=== PATIENT | female | born 1935 | race Caucasian/White ===

== ENCOUNTER 2019-11-22 14:54 | Outpatient (CLI) | payer MEDICARE, MEDICAID, SELFPAY ==
--- NOTE | 2019-11-23 14:01 | ONC FU_ITS ---
Dr. Estrella Patient Follow-Up Note Patient: Sendy Foley Unit #: [id number]: 1935 Dicatated By: Denny Estrella M.D.Date of Visit:Nov 22, 2019 Onc Med Follow-up/Prog Note Chief Complaint: Lung cancer. 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 By clinical evaluation disease appeared to be stage IB (T2a, N0, M0) at initial diagnosis, but with subsequent progression. In addition, by CT there also was a suspected small 2nd primary lesion involving the lingula. She had presented with persistent cough. Her initial chest x-ray, back in November 2016, showed indistinct increased parenchymal opacities in the right hilar region, suggesting possible mass. Further evaluation with chest CT on 12/09/2016 reported probable fibrosis involving the superior segment of the right lower lobe and additional probable fibrosis in the medial aspect of the right middle lobe. A 3-month follow-up study was recommended. She then had a repeat chest CT on 07/12/2017. It showed enlarging spiculated right hilar mass measuring 3.6 x 2.6 x 3.0 cm, suspicious for neoplasm. Also noted was a right hilar lymph node measuring 1.4 cm versus extension of tumor into the right hilum. There was evidence of underlying emphysema and prior granulomatous disease. There was probable scarring or fibrosis along the medial right upper lobe. PET/CT on 08/07/2017 showed 1.8 cm spiculated malignancy in the right infrahilar region with SUV 10.5, consistent with primary bronchogenic malignancy. There were no other areas of abnormal uptake. A 7 mm opacity in the superior lingula was too small to characterize by PET. She underwent bronchoscopy by Dr. Self on 09/06/2017 and again on 11/03/2017. On both occasions there was evidence of effacement to the orifice of the posterior segment of the right lower lobe. Biopsies, though, were nondiagnostic. Her further evaluation included repeat chest CT on 11/24/2017 which again showed spiculated mass in the right hilar region extending into the parenchyma of the superior segment right lower lobe and possibly into the right middle lobe posteriorly. It measured 3 x 3.2 x 2.3 cm. Also noted was an ill-defined spiculated nodule in the superior lingular segment, more apparent compared to the prior exam, and estimated at 9.5 mm. On 01/25/2018 she underwent repeat bronchoscopy with EBU S and fine-needle aspiration biopsy of the right hilar mass by Dr. Vida Solorio in [place]. 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 It was noted that the specimen was marginal for any ancillary studies. She began radiation to the right hilar lesion on 02/14/2018. It was administered concurrently with weekly carboplatin/Taxol chemotherapy. As of 03/14/2018 she completed her 5th weekly infusion of carboplatin/Taxol. Her week 6 treatment was delayed due to neutropenia. She also had fatigue, low-grade fever, and diarrhea. In addition, she was having some esophagitis symptoms with the radiation. She was given IV hydration and she also was given empiric antibiotic coverage with Levaquin. Her symptoms improved and she then completed her final chemotherapy treatment on 03/28/2018. She completed radiation on 04/01/2018 to a total dose of 6000 cGy. She then underwent SBRT to the lingular lesion, completed on 04/11/2018 to a total dose of [address] on 05/10/2018 showed interval enlargement of the right hilar/superior segment lower lobe mass measuring 7.5 x 4.5 x 2.6 cm. A 67 mm nodular focus in the left upper lobe appeared unchanged. New right upper lobe and increased right upper lobe medial focal opacity appeared nonspecific. Given those findings, she then began a trial of immunotherapy with atezolizumab, cycle 1 day 1 on 05/17/2018. Her other medical illnesses include COPD, hyperlipidemia, hypothyroidism, GERD, and vitamin D deficiency. She has a history of smoking for 50 years, in the range of 1-2 packs of cigarettes daily. She quit smoking in 1999. INTERIM HISTORY: She continued immunotherapy with atezolizumab at 3-week intervals. As of 07/19/2018 she received her 4th cycle of treatment. Thus far she has tolerated it well. Restaging CT of the chest on 08/05/2018 showed some decrease in the size of the neoplastic mass lesion in the superior segment right lower lobe compared to the study from April. There was possible extension of neoplastic process in the right middle lobe. There was evidence of postradiation changes of the lingula. Overall, there was no evidence of significant disease progression. She continued with cycle 6 of atezolizumab on 08/30/2018. As of her follow-up visit on 09/20/2018 her treatment was put on hold due to side effects, primarily muscle pain and cramping. Restaging CT of the chest, abdomen, and pelvis on 09/29/2018 showed soft tissue lesion extending posteriorly from the right hilum which appear most consistent with posttreatment scar. It measured 4.8 x 1.6 x 2.6 cm. Some component of residual and/or recurrent tumor was not excluded. Also noted was 5-10% compression fracture involving the T9 vertebral body, indeterminate age. The abdomen/pelvis showed severe colonic diverticulosis, no evidence of metastatic involvement. Restaging PET/CT on 12/31/2018 showed improvement in the right upper lobe mass, measuring 2.8 cm with SUV down to 4.3 compared to 10.5 on the prior study from July 2017. It was felt that the pattern of uptake was more suggestive of post radiation therapy inflammation than true residual disease, though a small region of recurrence was not excluded. A discrete lingular pulmonary nodule noted on the prior study was no longer evident. A repeat chest CT on 04/03/2019 showed stable appearance of right perihilar soft tissue attenuation suggestive of post-therapeutic changes. Lingular and bilateral lower lobe linear subsegmental atelectasis and/or scarring also appeared stable. There was no evidence of disease progression. A T9 superior endplate compression fracture also appeared unchanged. Restaging chest CT on 09/15/2019 showed persistent soft tissue density in the right hilar region which appeared more prominent compared to prior exams, estimated at 2 x 1.6 cm. A band of soft tissue density extending posterior from the right hilum appeared stable, compatible with radiation fibrosis. Additional scarring in the anterior segment left upper lobe and superior segment left lower lobe also appeared stable. There also was no change in the anterior superior compression fracture at T9. There was no evidence for lytic or blastic bony destructive lesions. She continued on observation/expectant management. Restaging PET/CT on 11/11/2019 showed unchanged size of right upper lobe lung lesion and it appeared to have just mild inflammatory activity. There was new uptake in the superior right hilum with SUV 5.0, possibly inflammatory but recurrence was not excluded. There was FDG avid soft tissue lateral to the right breast implant measuring 1.8 x 1.4 cm, SUV 6.0. This was also felt to be possibly inflammatory, but further characterization with ultrasound was recommended. There were no other areas of abnormal uptake reported. She is seen for a follow-up visit. She has not had good energy, and she complains that she is so sleepy all the time. She is doing light work, though. She has pretty good appetite. Her weight is up a couple of pounds. She recently had fever associated with a cold. She has not had night sweating. She has had a lot of sinus drainage, and she had productive cough with the cold, but that has improved. She does not complain of shortness of breath or chest pain. She has no GI/ complaints other than occasional heartburn, which she manages with Pepcid. She has a bone spur in her left heel, but she manages that adequately with ibuprofen. She occasionally has back pain. She has no focal neurologic symptoms. Medications: Acetaminophen 2 Tablet (of 325 mg) Oral PRN, Chloraseptic Liquid Mouth/throat PRN, Hydrocodone-Acetaminophen 1 (5-325 mg) Tablet Oral q 4 hours PRN, Levothyroxine Sodium 1 (100 mcg) Tablet Oral q 5 days on -, LORazepam 0.5 Tablet (of 1 mg) Oral q 6 hours PRN, Montelukast Sodium 1 (10 mg) Tablet Oral daily, Mucinex Cough Childrens 1 tsp Liquid Oral PRN, Mucinex Maximum Strength 1 Tablet (of 1200 mg) Tablet SR 12 HR Oral PRN, Mupirocin 1 (2 %) Ointment Topical PRN, Probiotic 2 Capsule Oral daily, Turmeric 1 Tablet (of 500 mg) Oral daily, Vitamin B Complex Liquid Oral daily, Vitamin C 1 Packet Powder Oral daily, Vitamin D3 (5000 Units) Capsule Oral Take as Directed, Vitamin E 1 Capsule (of 400 Units) Oral daily, Zinc 1 Capsule (of 25 mg) Oral daily Allergies: Cyclobenzaprine HCl, Gabapentin, Levaquin, and Statins. Review of Systems: Constitutional - She has not had good energy. She complains that she is so sleepy all the time. She is doing light work, though. She has pretty good appetite. Her weight is up a couple of pounds. She recently had fever associated with a cold. She has not had night sweating. ECOG score is 1, ENMT - She has a lot of sinus drainage. Her mouth sometimes bean. No sore throat or difficulty swallowing, Hematologic/Lymphatic - No abnormal bruising or bleeding, Respiratory - No shortness of breath. She had productive cough, but it is getting better. No pleuritic pain or hemoptysis, Cardiovascular - No angina pain. No palpitations, Gastrointestinal - No nausea or vomiting. She has heartburn occasionally. She manages it with Pepcid. No diarrhea or constipation. No blood in the stool or black stools, Genitourinary (F) - No dysuria or hematuria. No urinary frequency. No urgency or incontinence, Musculoskeletal - She has a bone spur in her left heel. She manages it adequately with ibuprofen. She occasionally has back pain, Integumentary - No skin complications, Neurologic - No headache. She has had some dizziness from an inner ear problem. No numbness/paresthesias or other focal neurologic symptoms, Psychiatric - No anxiety or depression. No insomnia. Vital Signs: Performed on Nov 22, 2019 15:19 Height - 63.00 in Weight - 135.2 lbs (HIGH) BSA - 1.64 sq.m BMI - 23.95 Temperature - 97.5 F (LOW) Pulse - 81 /min Respiration - 18 /min BP - 132/80 mm(hg) O2 Sat - 95 % (LOW) Pain - 0 Physical Examination: Constitutional - She looks pretty good generally, Eyes - Sclerae nonicteric. Conjunctivae clear, ENMT - No lesions noted in the oral cavity, Hematologic/Lymphatic - No cervical or clavicular adenopathy, Respiratory - Lungs sound clear with diminished air movement bilaterally, Cardiovascular - Heart rhythm is regular. There is no murmur, gallop, or rub noted, Breasts - There are multiple nodules overlying the breast implants bilaterally. I am not able to palpate any mass in the lateral aspect of the right breast. There is no axillary adenopathy noted, Abdomen - Soft. Liver and spleen are not enlarged. There is no abdominal mass or ascites noted and there is no inguinal adenopathy, Extremities - No edema, Neurologic - No focal neurologic deficits noted. Impression: 1. 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 By clinical evaluation, her disease appears to be stage IB (T2a, N0, M0), but the location does make the tumor inoperable. 2. There is an additional small but enlarging pulmonary nodule in the superior lingula. This is suspicious for a second primary malignancy. Her other medical illnesses include: 3. COPD. 4. Hypothyroidism. 5. Hyperlipidemia with statin intolerance. 6. GERD. 7. Vitamin D deficiency. She began treatment with radiation concurrently with weekly carboplatin/Taxol chemotherapy on 02/14/2018. As of 03/14/2018 she completed 5 weekly chemotherapy infusions. As of 03/21/2018 her white count had dropped to 1600 with ANC 1400, and her chemotherapy was put on hold. She had increased fatigue and low-grade fever. Her symptoms improved after IV hydration and empiric antibiotic coverage with Levaquin. She then completed her final chemotherapy treatment on 03/28/2018. She completed radiation on 04/01/2018 to a total dose of 6000 cGy. She then underwent SBRT to the lingular lesion, completed on 04/11/2018 to a total dose of 5400 cGy. Her restaging chest CT on 05/10/2018 showed evidence of progression of the right hilar and superior segment lower lobe neoplasm. Given those findings, she began a trial of immunotherapy with atezolizumab on 05/17/2018. She has now completed 4 cycles of treatment. She has tolerated it well. Her restaging chest CT on 08/05/2018 showed some decrease in the right lower lobe mass with no evidence of significant disease progression. She continued treatment with atezolizumab. She completed cycle 6 on 08/30/2018. As of her follow-up visit on 09/20/2018, her treatment was put on hold due to side effects, mainly muscle pain and cramping. She has since then been on steroid therapy, and her symptoms have resolved. Her restaging CT scans on 09/29/2018 showed residual mass in the area of the right hilum, but no obvious disease progression. Restaging PET/CT on 12/31/2018 showed significant improvement compared to the prior study from July 2017. There was residual right upper lobe mass measuring 2.8 cm with SUV 4.3 compared to 10.5 on the prior study. It was felt that the pattern of uptake was more suggestive of postradiation therapy inflammation than true residual disease, though recurrence was not excluded. At that point she continued on observation/expectant management. Her repeat chest CT in March 2019 appeared stable with no evidence of disease progression. 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 Those symptoms had gradually improved somewhat, though not completely resolved. She appears to have some decline in her activity tolerance. On her restaging chest CT there was a suspicion of slight progression of the tumor in the area of the right hilum. There was no other evidence for disease progression. Her restaging PET/CT on 11/11/2019 did show some uptake in the superior right hilum, but with the SUV suggestive of inflammatory activity. Recurrence, though, was not excluded. There was new uptake in soft tissue lateral to the right breast implant, also possibly inflammatory, but further evaluation with ultrasound was recommended. She appears stable clinically. Plan: She will remain on observation/expectant management for the lung cancer. She will be scheduled for a follow-up visit with repeat chest CT in 3 months. In the meantime, she also will be scheduled for an ultrasound of the right breast, and she will have further evaluation as indicated. Signed By: Dneny Estrella M.D. <<Signature on File>>
== END 2019-11-22 14:55 | disposition home or self-care (01) ==
LOC: ONCMED 14:54
PROVIDERS: Family Provider Nurse Practitioner; PCP Nurse Practitioner; Visit Provider Internal Medicine Medical Oncology
DX: C34.31 Malignant neoplasm of lower lobe, right bronchus or lung (principal); R92.8 Other abnormal and inconclusive findings on diagnostic imaging of breast; J43.9 Emphysema, unspecified; E78.5 Hyperlipidemia, unspecified; E03.9 Hypothyroidism, unspecified; K21.9 Gastro-esophageal reflux disease without esophagitis; E55.9 Vitamin D deficiency, unspecified; Z79.891 Long term (current) use of opiate analgesic; Z79.899 Other long term (current) drug therapy; Z92.21 Personal history of antineoplastic chemotherapy; Z92.3 Personal history of irradiation; Z92.25 Personal history of immunosuppression therapy; Z87.891 Personal history of nicotine dependence
CPT/HCPCS: 99214

== ENCOUNTER 2019-11-28 10:15 | Outpatient (CLI) | payer MEDICARE, MEDICAID, SELFPAY ==
--- NOTE | 2019-11-28 11:00 | US_ITS ---
WS: [id number] ULTRASOUND RIGHT BREAST HISTORY: RIGHT BREAST ABNORMALITY ON PET/CT COMPARISON: Head CT 11/11/[address] 09/15/2019 TECHNIQUE: 2-D and Doppler. Ultrasound is directed to the lateral aspect of the RIGHT breast implant. Along the RIGHT lateral asp ect of the implant is a lobulated area of dense shadowing measuring 2.9 x 1.5 cm. This is inseparable from the implant. No increased vascularity. Patient has bilateral breast implants. US/US breast RT limited* [id number] IMPRESSION: BI-RADS: 4A-Suspicious: Low FOLLOW-UP: Surgical Biopsy Recommended 1. PET/CT positive mass corresponds to a lobulated area of shadowing adjacent to the breast implant. Due to the appearance by ultrasound suspect this may be a siliconoma which is related to rupture of the implant. Siliconoma can be fals e positive on PET/CT imaging. 2. These are difficult to biopsy with ultrasound guidance due to their locatio n of the implant and a small sampling. Surgical removal is typically necessary to exclude benign etiologies versus metastatic site.
== END 2019-11-28 10:16 | disposition home or self-care (01) ==
LOC: RAD 10:19
PROVIDERS: Family Provider Nurse Practitioner; PCP Nurse Practitioner; Visit Provider Internal Medicine Medical Oncology
DX: R92.8 Other abnormal and inconclusive findings on diagnostic imaging of breast (principal)
CPT/HCPCS: 76642

== ENCOUNTER 2020-02-23 09:03 | Outpatient (CLI) | payer MEDICARE, MEDICAID, SELFPAY ==
--- NOTE | 2020-02-23 09:30 | CT_ITS ---
WS: [id number] CT CHEST WITH INTRAVENOUS CONTRAST HISTORY: LUNG CA TECHNIQUE: Contiguous 5 mm axial imaging performed on the thorax. Coronal and sagittal reformats are submitted. All CT scans at [facility] use at least one of these dose optimization techniq ues: automated exposure control; mA and/or kV adjustment per patient size (includes targeted exams wh ere dose is matched to clinical indication); or iterative reconstruction. CONTRAST: Omnipaque 300; 95 mL IV. DLP: 345.42 mGy.cm COMPARISON: 09/15/2019 and 04/03/2019, PET/CT 11/11/2019 Lungs and central airway: Soft tissue mass centered at the RIGHT hilum encasing the pulmonary artery and the central bronchial structures is again identified without significant increase in size since t he prior study. There has been no improvement. Largest AP diameter of the posterior hilar mass is 2.3 cm which compares to 2.1 cm on the prior study. Subsolid stable nodule in the medial RIGHT upper lob e is stable. Benign granuloma RIGHT lower lobe. No pneumonia. Pleura: Normal. No pleural effusion. Heart and pericardium: Normal size heart. No pericardial effusion. Mediastinum and tarun: Small subcentimeter precarinal and AP window lymph nodes. There are no enlargin g lymph nodes as compared to the prior examination or the PET/CT. Vessels: Mild atherosclerosis of aorta. No aneurysm. Pulmonary artery size is normal. Chest wall and lower neck: Bilateral breast implants. These breast implants are partially calcified. There is soft tissue thickening along the posterior RIGHT implant measuring 12 x 16 mm which was posi tive on the PET/CT. This is unchanged in size also. Upper abdomen: Moderate size hiatal hernia. Prior cholecystectomy. No adrenal mass. The visualized li reyes is negative for metastatic disease. Osseous structures: Chronic T9 compression fracture with no interval change. CT/CT chest w con* [id number] IMPRESSION: 1. No significant progression in the neoplasm centered at the RIGHT hilum with encasement of the hilar structures. Stable since 09/15/2019. Continued spiculat ed soft tissue. No progression or improvement. 2. No enlarging mediastinal or hilar lymph nodes. 3. Stable RIGHT upper lobe subsolid opacification. 4. No increase in size of the soft tissue mass adjacent to the posterior RIGHT breast implant. 5. Prior cholecystectomy. 6. Moderate hiatal hernia. 7. Unchanged T9 compression fracture.
[2020-02-23 09:45] LABS: Basophils # 0.1 10^3/uL (0.0-0.1); Eosinophils # 0.1 10^3/uL (0.0-0.8); Eosinophils % 1.9 %; Hematocrit 41.2 % (37.0-47.0); Hemoglobin 13.3 g/dL (11.5-15.3); Lymphocytes # 1.1 10^3/uL (0.8-4.8); Lymphocytes % 21.6 %; Mean Corpuscular HGB Conc 32.3 g/dL (30.0-36.0); Mean Corpuscular Hemoglobin 30.8 pg (28.0-34.0); Mean Corpuscular Volume 95.4 fL (81-99); Mean Platelet Volume 9.4 fL (7.4-10.4); Monocytes # 0.5 10^3/uL (0.2-0.9); Monocytes % 9.2 %; Neutrophils # 3.5 10^3/uL (1.8-7.7); Neutrophils % 65.9 %; Nucleated Red Blood Cells % 0 %; Platelet Count 237 10^3/cmm (130-400); Red Blood Count 4.32 10^6/uL (4.1-5.3); Red Cell Distribution Width 12.9 % (12.1-15.1); White Blood Count 5.2 10^3/uL (4.0-10.0)
[2020-02-23] MEDS: iohexol 300 mg/mL 100 mL Btl IV (10:41)
[2020-02-23 10:44] LABS: 25 Hydroxy Vitamin D 55 ng/mL (30-100); Alanine Aminotransferase 21 U/L (0-33); Albumin Level 4.7 g/dL (3.5-5.2); Alkaline Phosphatase 61 IU/L (35-105); Anion Gap 17.2 (5-19); Aspartate Amino Transferase 23 U/L (0-32); Blood Urea Nitrogen 13 mg/dL (8-23); Calcium 10.5 mg/dL (8.5-10.5); Carbon Dioxide 26 mmol/L (22-29); Chloride 102 mmol/L (98-107); Globulin 3.3 g/dL (1.3-4.6); Glucose 106 mg/dL (65-115); Osmolality Calculated 289 mOsm/kg (285-295); Potassium 4.2 mmol/L (3.5-5.1); Sodium 141 mmol/L (136-145); Thyroid Stimulating Hormone 1.84 uIU/mL (0.27-4.20); Total Bilirubin 0.3 mg/dL (0.15-1.2)
== END 2020-02-23 09:04 | disposition home or self-care (01) ==
LOC: RAD 09:09
PROVIDERS: PCP Nurse Practitioner; Visit Provider Internal Medicine Medical Oncology
DX: K44.9 Diaphragmatic hernia without obstruction or gangrene (principal); C34.31 Malignant neoplasm of lower lobe, right bronchus or lung; J44.9 Chronic obstructive pulmonary disease, unspecified; M48.54XA Collapsed vertebra, not elsewhere classified, thoracic region, initial encounter for fracture; E55.9 Vitamin D deficiency, unspecified; E03.9 Hypothyroidism, unspecified
CPT/HCPCS: 36415; 71260; 80053; 82306; 84443; 85025

== ENCOUNTER 2020-02-28 12:48 | Outpatient (CLI) | payer MEDICARE, MEDICAID, SELFPAY ==
--- NOTE | 2020-03-03 10:04 | ONC FU_ITS ---
Dr. Estrella Patient Follow-Up Note Patient: Sendy Foley Unit #: [id number]: 1935 Dicatated By: Denny Estrella M.D.Date of Visit:February 28, 2020 Onc Med Follow-up/Prog Note Chief Complaint: Lung cancer. 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 By clinical evaluation disease appeared to be stage IB (T2a, N0, M0) at initial diagnosis, but with subsequent progression. In addition, by CT there also was a suspected small 2nd primary lesion involving the lingula. She had presented with persistent cough. Her initial chest x-ray, back in November 2016, showed indistinct increased parenchymal opacities in the right hilar region, suggesting possible mass. Further evaluation with chest CT on 12/09/2016 reported probable fibrosis involving the superior segment of the right lower lobe and additional probable fibrosis in the medial aspect of the right middle lobe. A 3-month follow-up study was recommended. She then had a repeat chest CT on 07/12/2017. It showed enlarging spiculated right hilar mass measuring 3.6 x 2.6 x 3.0 cm, suspicious for neoplasm. Also noted was a right hilar lymph node measuring 1.4 cm versus extension of tumor into the right hilum. There was evidence of underlying emphysema and prior granulomatous disease. There was probable scarring or fibrosis along the medial right upper lobe. PET/CT on 08/07/2017 showed 1.8 cm spiculated malignancy in the right infrahilar region with SUV 10.5, consistent with primary bronchogenic malignancy. There were no other areas of abnormal uptake. A 7 mm opacity in the superior lingula was too small to characterize by PET. She underwent bronchoscopy by Dr. Self on 09/06/2017 and again on 11/03/2017. On both occasions there was evidence of effacement to the orifice of the posterior segment of the right lower lobe. Biopsies, though, were nondiagnostic. Her further evaluation included repeat chest CT on 11/24/2017 which again showed spiculated mass in the right hilar region extending into the parenchyma of the superior segment right lower lobe and possibly into the right middle lobe posteriorly. It measured 3 x 3.2 x 2.3 cm. Also noted was an ill-defined spiculated nodule in the superior lingular segment, more apparent compared to the prior exam, and estimated at 9.5 mm. On 01/25/2018 she underwent repeat bronchoscopy with EBU S and fine-needle aspiration biopsy of the right hilar mass by Dr. Vida Solorio in [place]. 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 It was noted that the specimen was marginal for any ancillary studies. She began radiation to the right hilar lesion on 02/14/2018. It was administered concurrently with weekly carboplatin/Taxol chemotherapy. As of 03/14/2018 she completed her 5th weekly infusion of carboplatin/Taxol. Her week 6 treatment was delayed due to neutropenia. She also had fatigue, low-grade fever, and diarrhea. In addition, she was having some esophagitis symptoms with the radiation. She was given IV hydration and she also was given empiric antibiotic coverage with Levaquin. Her symptoms improved and she then completed her final chemotherapy treatment on 03/28/2018. She completed radiation on 04/01/2018 to a total dose of 6000 cGy. She then underwent SBRT to the lingular lesion, completed on 04/11/2018 to a total dose of [address] on 05/10/2018 showed interval enlargement of the right hilar/superior segment lower lobe mass measuring 7.5 x 4.5 x 2.6 cm. A 67 mm nodular focus in the left upper lobe appeared unchanged. New right upper lobe and increased right upper lobe medial focal opacity appeared nonspecific. Given those findings, she then began a trial of immunotherapy with atezolizumab, cycle 1 day 1 on 05/17/2018. Her other medical illnesses include COPD, hyperlipidemia, hypothyroidism, GERD, and vitamin D deficiency. She has a history of smoking for 50 years, in the range of 1-2 packs of cigarettes daily. She quit smoking in 1999. INTERIM HISTORY: She continued immunotherapy with atezolizumab at 3-week intervals. As of 07/19/2018 she received her 4th cycle of treatment. Thus far she has tolerated it well. Restaging CT of the chest on 08/05/2018 showed some decrease in the size of the neoplastic mass lesion in the superior segment right lower lobe compared to the study from April. There was possible extension of neoplastic process in the right middle lobe. There was evidence of postradiation changes of the lingula. Overall, there was no evidence of significant disease progression. She continued with cycle 6 of atezolizumab on 08/30/2018. As of her follow-up visit on 09/20/2018 her treatment was put on hold due to side effects, primarily muscle pain and cramping. Restaging CT of the chest, abdomen, and pelvis on 09/29/2018 showed soft tissue lesion extending posteriorly from the right hilum which appear most consistent with posttreatment scar. It measured 4.8 x 1.6 x 2.6 cm. Some component of residual and/or recurrent tumor was not excluded. Also noted was 5-10% compression fracture involving the T9 vertebral body, indeterminate age. The abdomen/pelvis showed severe colonic diverticulosis, no evidence of metastatic involvement. Restaging PET/CT on 12/31/2018 showed improvement in the right upper lobe mass, measuring 2.8 cm with SUV down to 4.3 compared to 10.5 on the prior study from July 2017. It was felt that the pattern of uptake was more suggestive of post radiation therapy inflammation than true residual disease, though a small region of recurrence was not excluded. A discrete lingular pulmonary nodule noted on the prior study was no longer evident. A repeat chest CT on 04/03/2019 showed stable appearance of right perihilar soft tissue attenuation suggestive of post-therapeutic changes. Lingular and bilateral lower lobe linear subsegmental atelectasis and/or scarring also appeared stable. There was no evidence of disease progression. A T9 superior endplate compression fracture also appeared unchanged. Restaging chest CT on 09/15/2019 showed persistent soft tissue density in the right hilar region which appeared more prominent compared to prior exams, estimated at 2 x 1.6 cm. A band of soft tissue density extending posterior from the right hilum appeared stable, compatible with radiation fibrosis. Additional scarring in the anterior segment left upper lobe and superior segment left lower lobe also appeared stable. There also was no change in the anterior superior compression fracture at T9. There was no evidence for lytic or blastic bony destructive lesions. Restaging PET/CT on 11/11/2019 showed unchanged size of right upper lobe lung lesion and it appeared to have just mild inflammatory activity. There was new uptake in the superior right hilum with SUV 5.0, possibly inflammatory but recurrence was not excluded. There was FDG avid soft tissue lateral to the right breast implant measuring 1.8 x 1.4 cm, SUV 6.0. This was also felt to be possibly inflammatory, but further characterization with ultrasound was recommended. There were no other areas of abnormal uptake reported. She continued on observation/expectant management. Repeat chest CT on 02/23/2020 showed soft tissue mass centered at the right hilum and encasing the pulmonary artery and the central bronchial structures. The largest AP diameter was 2.3 cm. It was not significantly changed compared to prior studies. A sub-solid nodule in the medial right upper lobe also appeared stable. The soft tissue mass adjacent to the posterior right breast implant also appeared stable. Overall there was no evidence of disease progression. She is seen for a follow-up visit. She had recently developed a bad cough and increased shortness of breath in association with sinus drainage. She was not having fever. She was started on prednisone, and since then she has been feeling better. She says her energy had been terrible, but both her energy and appetite have improved on the prednisone. Her weight is stable. Her ECOG score is 1. She has no fever or night sweats. She says her cough is getting better. She is sometimes short of breath. She uses her inhaler as needed. She has no GI/ complaints other than occasional heartburn. She currently has no significant joint or bone pain. She was having headache, but that is gone now. She has no focal neurologic symptoms. Medications: Acetaminophen 2 Tablet (of 325 mg) Oral PRN, Chloraseptic Liquid Mouth/throat PRN, Hydrocodone-Acetaminophen 1 (5-325 mg) Tablet Oral q 4 hours PRN, Levothyroxine Sodium 1 (100 mcg) Tablet Oral q 5 days on -, LORazepam 0.5 Tablet (of 1 mg) Oral q 6 hours PRN, Montelukast Sodium 1 (10 mg) Tablet Oral daily, Mucinex Cough Childrens 1 tsp Liquid Oral PRN, Mucinex Maximum Strength 1 Tablet (of 1200 mg) Tablet SR 12 HR Oral PRN, Mupirocin 1 (2 %) Ointment Topical PRN, Probiotic 2 Capsule Oral daily, Turmeric 1 Tablet (of 500 mg) Oral daily, Vitamin B Complex Liquid Oral daily, Vitamin C 1 Packet Powder Oral daily, Vitamin D3 (5000 Units) Capsule Oral Take as Directed, Vitamin E 1 Capsule (of 400 Units) Oral daily, Zinc 1 Capsule (of 25 mg) Oral daily Allergies: Cyclobenzaprine HCl, Gabapentin, Levaquin, and Statins. Review of Systems: Constitutional - Her energy has been terrible, but it did improve somewhat after she started prednisone. She is able to do light work. Appetite also has improved. Her weight is stable. She has no fever or night sweats. ECOG score is 1, Eyes - She underwent cataract excisions earlier this year, ENMT - She has sinus drainage. No mouth sores. She has had sore throat. No difficulty swallowing, Hematologic/Lymphatic - No abnormal bruising or bleeding, Respiratory - She sometimes has shortness of breath. Her cough is getting better. No pleuritic pain or hemoptysis, Cardiovascular - No angina pain. No palpitations, Gastrointestinal - No nausea or vomiting. She occasionally has heartburn. No diarrhea or constipation. No blood in the stool or black stools, Genitourinary (F) - No dysuria or hematuria. No urinary frequency. No urgency or incontinence, Musculoskeletal - No significant joint or bone pain, Integumentary - No skin complications, Neurologic - She was having headache, but it is gone now. No dizziness. No numbness/paresthesias or other focal neurologic symptoms, Psychiatric - No anxiety or depression. No insomnia. Vital Signs: Performed on February 28, 2020 13:08 Height - 63.00 in Weight - 134.2 lbs (LOW) BSA - 1.63 sq.m BMI - 23.77 Temperature - 97.2 F (LOW) Pulse - 82 /min Respiration - 18 /min BP - 129/84 mm(hg) O2 Sat - 98 % Pain - 0 Physical Examination: Constitutional - She looks pretty good generally, Eyes - Sclerae nonicteric. Conjunctivae clear, ENMT - No lesions noted in the oral cavity, Hematologic/Lymphatic - No cervical or clavicular adenopathy, Respiratory - Lungs sound clear with diminished air movement bilaterally, worse on the right, Cardiovascular - Heart rhythm is regular. There is no murmur, gallop, or rub noted, Abdomen - Soft. Liver and spleen are not enlarged. There is no abdominal mass or ascites noted and there is no inguinal adenopathy, Extremities - No edema, Neurologic - No focal neurologic deficits noted. Lab/Imaging: Test performed on February 23, 2020 09:55 Sodium 141 mmol/L TSH 1.84 uIU/mL Vitamin D (25-Hydroxy), Total 55 ng/mL Potassium 4.2 mmol/L Chloride 102 mmol/L CO2 26 mmol/L Anion Gap 17.2 BUN 13 mg/dL Creatinine 0.9 mg/dL Cr Clearance (Est) 45.8500 mL/min Glucose 106 mg/dL Calcium 10.5 mg/dL Protein, Total 8.0 g/dL Albumin 4.7 g/dL Globulin 3.3 g/dL Bilirubin, Total 0.3 mg/dL ALT (SGPT) 21 U/L AST (SGOT) 23 U/L Alkaline Phosphatase 61 IU/L Test performed on February 23, 2020 09:35 WBC 5.2 10 3/uL RBC 4.32 10 6/uL HGB 13.3 g/dL HCT 41.2 % MCV 95.4 fL MCH 30.8 pg MCHC 32.3 g/dL RDW 12.9 % Platelet Count 237 10 3/cmm MPV 9.4 fL Neutrophils 3.5 10 3/uL Lymphocytes 1.1 10 3/uL Monocytes 0.5 10 3/uL Eosinophils 0.1 10 3/uL Basophils 0.1 10 3/uL Neutrophil % 65.9 % Lymphocyte % 21.6 % Monocyte % 9.2 % Eosinophil % 1.9 % Basophils % 1.0 % Impression: 1. 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 By clinical evaluation, her disease appears to be stage IB (T2a, N0, M0), but the location does make the tumor inoperable. 2. There is an additional small but enlarging pulmonary nodule in the superior lingula. This is suspicious for a second primary malignancy. Her other medical illnesses include: 3. COPD. 4. Hypothyroidism. 5. Hyperlipidemia with statin intolerance. 6. GERD. 7. Vitamin D deficiency. She began treatment with radiation concurrently with weekly carboplatin/Taxol chemotherapy on 02/14/2018. As of 03/14/2018 she completed 5 weekly chemotherapy infusions. As of 03/21/2018 her white count had dropped to 1600 with ANC 1400, and her chemotherapy was put on hold. She had increased fatigue and low-grade fever. Her symptoms improved after IV hydration and empiric antibiotic coverage with Levaquin. She then completed her final chemotherapy treatment on 03/28/2018. She completed radiation on 04/01/2018 to a total dose of 6000 cGy. She then underwent SBRT to the lingular lesion, completed on 04/11/2018 to a total dose of 5400 cGy. Her restaging chest CT on 05/10/2018 showed evidence of progression of the right hilar and superior segment lower lobe neoplasm. Given those findings, she began a trial of immunotherapy with atezolizumab on 05/17/2018. She has now completed 4 cycles of treatment. She has tolerated it well. Her restaging chest CT on 08/05/2018 showed some decrease in the right lower lobe mass with no evidence of significant disease progression. She continued treatment with atezolizumab. She completed cycle 6 on 08/30/2018. As of her follow-up visit on 09/20/2018, her treatment was put on hold due to side effects, mainly muscle pain and cramping. She has since then been on steroid therapy, and her symptoms have resolved. Her restaging CT scans on 09/29/2018 showed residual mass in the area of the right hilum, but no obvious disease progression. Restaging PET/CT on 12/31/2018 showed significant improvement compared to the prior study from July 2017. There was residual right upper lobe mass measuring 2.8 cm with SUV 4.3 compared to 10.5 on the prior study. It was felt that the pattern of uptake was more suggestive of postradiation therapy inflammation than true residual disease, though recurrence was not excluded. At that point she continued on observation/expectant management. Her repeat chest CT in March 2019 appeared stable with no evidence of disease progression. 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 Those symptoms had gradually improved somewhat, though not completely resolved. She appears to have some decline in her activity tolerance. On her restaging chest CT there was a suspicion of slight progression of the tumor in the area of the right hilum. There was no other evidence for disease progression. Her restaging PET/CT on 11/11/2019 did show some uptake in the superior right hilum, but with the SUV suggestive of inflammatory activity. Recurrence, though, was not excluded. There was new uptake in soft tissue lateral to the right breast implant, also possibly inflammatory. 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 At that point she appeared stable clinically, and she continued observation/expectant management. She recently was started on prednisone for increased shortness of breath and cough in association with sinus drainage. Those symptoms have improved significantly on the steroid, and she also has had improvement in her energy/activity tolerance and in her appetite. Her current chest CT shows no evidence of disease progression. Plan: She remains on observation/expectant management for the lung cancer. She will be given 1 refill on the prednisone prescription. I will see her again in 3 months, or sooner as needed. Signed By: Denny Estrella M.D. <<Signature on File>>
== END 2020-02-28 12:49 | disposition home or self-care (01) ==
PROVIDERS: PCP Nurse Practitioner; Visit Provider Internal Medicine Medical Oncology
DX: C34.31 Malignant neoplasm of lower lobe, right bronchus or lung (principal); J44.9 Chronic obstructive pulmonary disease, unspecified; E03.9 Hypothyroidism, unspecified; E78.5 Hyperlipidemia, unspecified; K21.9 Gastro-esophageal reflux disease without esophagitis; E55.9 Vitamin D deficiency, unspecified; H81.09 Meniere's disease, unspecified ear; R09.81 Nasal congestion; Z92.3 Personal history of irradiation; Z92.22 Personal history of monoclonal drug therapy; Z79.52 Long term (current) use of systemic steroids
CPT/HCPCS: 99214

== ENCOUNTER → 2020-04-09 15:52 | Outpatient (BNVA) | payer MEDICARE, MEDICAID, SELFPAY | PROVIDERS: PCP Nurse Practitioner; Visit Provider Nurse Practitioner Family | DX: J39.2 Other diseases of pharynx (principal); J02.9 Acute pharyngitis, unspecified | CPT/HCPCS: 85025; 87070; 87071; 87880 ==

== ENCOUNTER 2020-05-16 12:28 | Outpatient (CLI) | payer MEDICARE, MEDICAID, SELFPAY ==
--- NOTE | 2020-05-16 12:51 | CT_ITS ---
WS: [id number] CT NECK TECHNIQUE: Contrast-enhanced CT of the neck with coronal and sagittal reformatted images. CLINICAL INFORMATION: CHRONIC PHARYNGITIS, HYPERTROPHY OF TONSILS COMPARISON: PET/CT to October 30, 2019 DLP: 1510.[address] scans at [facility] use at least one of these dose optimization techniques: automat ed exposure control; mA and/or kV adjustment per patient size (includes targeted exams where dose is matched to clinical indication); or iterative reconstruction. FINDINGS: Heterogeneously enhancing right lingual tonsil and palatine tonsil abutting the base of tongue measur ing 11.7 x 9.1 mm suspicious for neoplasm. Central low attenuation likely necrosis.This is submucosal in location and extends just to the mucosa. Recommend direct visualization and biopsy. Left pontine tonsil appears normal. Parotid glands are normal. Submandibular glands are normal. Calvillo cular epiglottis normal. Normal piriform sinuses. Normal subglottic airway. No cervical lymphadenopathy. Previously described right hilar mass and neoplasm partially visualized similar in appearance to the prior chest CT. Paranasal sinuses and mastoid air cells well aerated. Pa rtially visualized intracranial contents appear unremarkable. CT/CT neck w con* [id number] IMPRESSION: 1. Peripheral enhancing lesion involving the right lingual tonsil and palatine tonsil abutting the base of tongue measuring 11.7 x 9.1 mm highly suspicious f or neoplasm. Recommend direct visualization and biopsy. 2. Salivary glands are normal. 3. No cervical lymphadenopathy. 4. Right hilar mass consistent with known neoplasm partially visualized is sim ilar in appearance the prior CT.
[2020-05-16 13:19] LABS: Blood Urea Nitrogen 19 mg/dL (8-23)
[2020-05-16] MEDS: iodixanol 320 mg/mL 100mL Btl IV (13:26)
== END 2020-05-16 12:29 | disposition home or self-care (01) ==
LOC: RADWPI 12:33
PROVIDERS: Family Provider Nurse Practitioner; PCP Nurse Practitioner; Visit Provider Specialist
DX: J31.2 Chronic pharyngitis (principal); J35.1 Hypertrophy of tonsils
CPT/HCPCS: 70491; 82565; 84520; Q9967

== ENCOUNTER 2020-05-27 09:04 | Outpatient (CLI) | payer MEDICARE, MEDICAID, SELFPAY ==
[2020-05-27 10:03] LABS: Basophils % 0.4 %; Hematocrit 39.9 % (37.0-47.0); Lymphocytes # 1.1 10^3/uL (0.8-4.8); Mean Corpuscular HGB Conc 32.6 g/dL (30.0-36.0); Mean Corpuscular Hemoglobin 30.8 pg (28.0-34.0); Mean Corpuscular Volume 94.5 fL (81-99); Mean Platelet Volume 9.8 fL (7.4-10.4); Monocytes # 0.2 10^3/uL (0.2-0.9); Monocytes % 2.8 %; Neutrophils % 80.2 %; Nucleated Red Blood Cells % 0 %; Platelet Count 228 10^3/cmm (130-400); Red Blood Count 4.22 10^6/uL (4.1-5.3); Red Cell Distribution Width 13.7 % (12.1-15.1); White Blood Count 6.9 10^3/uL (4.0-10.0)
[2020-05-27 10:33] LABS: Blood Urea Nitrogen 17 mg/dL (8-23); Calcium 9.4 mg/dL (8.5-10.5); Carbon Dioxide 24 mmol/L (22-29); Chloride 106 mmol/L (98-107); Glucose 132 mg/dL (65-115); Osmolality Calculated 288 mOsm/kg (285-295); Sodium 140 mmol/L (136-145)
[2020-05-27 10:39] LABS: Anion Gap 14.5 (5-19); Potassium 4.5 mmol/L (3.5-5.1)
== END 2020-05-27 09:05 | disposition home or self-care (01) ==
LOC: LAB 09:15
PROVIDERS: PCP Nurse Practitioner; Visit Provider Specialist
DX: C01 Malignant neoplasm of base of tongue (principal)
CPT/HCPCS: 36415; 80048; 85025

== ENCOUNTER 2020-06-03 13:14 | Outpatient (CLI) | payer MEDICARE, MEDICAID, SELFPAY ==
--- NOTE | 2020-06-03 20:14 | ONC FU_ITS ---
Dr. Estrella Patient Follow-Up Note Patient: Sendy Foley Unit #: [id number]: 1935 Dicatated By: Denny Estrella M.D.Date of Visit:Jun 03, 2020 Onc Med Follow-up/Prog Note Chief Complaint: Lung cancer. 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 By clinical evaluation disease appeared to be stage IB (T2a, N0, M0) at initial diagnosis, but with subsequent progression. In addition, by CT there also was a suspected small 2nd primary lesion involving the lingula. She had presented with persistent cough. Her initial chest x-ray, back in November 2016, showed indistinct increased parenchymal opacities in the right hilar region, suggesting possible mass. Further evaluation with chest CT on 12/09/2016 reported probable fibrosis involving the superior segment of the right lower lobe and additional probable fibrosis in the medial aspect of the right middle lobe. A 3-month follow-up study was recommended. She then had a repeat chest CT on 07/12/2017. It showed enlarging spiculated right hilar mass measuring 3.6 x 2.6 x 3.0 cm, suspicious for neoplasm. Also noted was a right hilar lymph node measuring 1.4 cm versus extension of tumor into the right hilum. There was evidence of underlying emphysema and prior granulomatous disease. There was probable scarring or fibrosis along the medial right upper lobe. PET/CT on 08/07/2017 showed 1.8 cm spiculated malignancy in the right infrahilar region with SUV 10.5, consistent with primary bronchogenic malignancy. There were no other areas of abnormal uptake. A 7 mm opacity in the superior lingula was too small to characterize by PET. She underwent bronchoscopy by Dr. Self on 09/06/2017 and again on 11/03/2017. On both occasions there was evidence of effacement to the orifice of the posterior segment of the right lower lobe. Biopsies, though, were nondiagnostic. Her further evaluation included repeat chest CT on 11/24/2017 which again showed spiculated mass in the right hilar region extending into the parenchyma of the superior segment right lower lobe and possibly into the right middle lobe posteriorly. It measured 3 x 3.2 x 2.3 cm. Also noted was an ill-defined spiculated nodule in the superior lingular segment, more apparent compared to the prior exam, and estimated at 9.5 mm. On 01/25/2018 she underwent repeat bronchoscopy with EBU S and fine-needle aspiration biopsy of the right hilar mass by Dr. Vida Solorio in [place]. 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 It was noted that the specimen was marginal for any ancillary studies. She began radiation to the right hilar lesion on 02/14/2018. It was administered concurrently with weekly carboplatin/Taxol chemotherapy. She completed her 6th weekly chemotherapy treatment on 03/28/2018. She completed radiation on 04/01/2018 to a total dose of 6000 cGy. She then underwent SBRT to the lingular lesion, completed on 04/11/2018 to a total dose of [address] on 05/10/2018 showed interval enlargement of the right hilar/superior segment lower lobe mass measuring 7.5 x 4.5 x 2.6 cm. A 67 mm nodular focus in the left upper lobe appeared unchanged. New right upper lobe and increased right upper lobe medial focal opacity appeared nonspecific. Given those findings, she then began a trial of immunotherapy with atezolizumab, cycle 1 day 1 on 05/17/2018. She continued immunotherapy with atezolizumab at 3-week intervals. As of 07/19/2018 she received her 4th cycle of treatment. Thus far she has tolerated it well. Restaging CT of the chest on 08/05/2018 showed some decrease in the size of the neoplastic mass lesion in the superior segment right lower lobe compared to the study from April. There was possible extension of neoplastic process in the right middle lobe. There was evidence of postradiation changes of the lingula. Overall, there was no evidence of significant disease progression. She continued with cycle 6 of atezolizumab on 08/30/2018. As of her follow-up visit on 09/20/2018 her treatment was put on hold due to side effects, primarily muscle pain and cramping. Restaging CT of the chest, abdomen, and pelvis on 09/29/2018 showed soft tissue lesion extending posteriorly from the right hilum which appear most consistent with posttreatment scar. It measured 4.8 x 1.6 x 2.6 cm. Some component of residual and/or recurrent tumor was not excluded. Also noted was 5-10% compression fracture involving the T9 vertebral body, indeterminate age. The abdomen/pelvis showed severe colonic diverticulosis, but no evidence of metastatic involvement. With those findings, she continued observation/expectant management for the lung cancer. Her restaging PET/CT on 12/31/2018 showed improvement in the right upper lobe mass, measuring 2.8 cm with SUV down to 4.3 compared to 10.5 on the prior study from July 2017. It was felt that the pattern of uptake was more suggestive of post radiation therapy inflammation than true residual disease, though a small region of recurrence was not excluded. A discrete lingular pulmonary nodule noted on the prior study was no longer evident. Her other medical illnesses include COPD, hyperlipidemia, hypothyroidism, GERD, and vitamin D deficiency. She has a history of smoking for 50 years, in the range of 1-2 packs of cigarettes daily. She quit smoking in 1999. INTERIM HISTORY: Her surveillance CT scans in March 2019 and in September 2019 showed persistent soft tissue density in the right hilar region with no obvious disease progression. Restaging PET/CT on 11/11/2019 showed unchanged size of right upper lobe lung lesion and it appeared to have just mild inflammatory activity. There was new uptake in the superior right hilum with SUV 5.0, possibly inflammatory but recurrence was not excluded. There was FDG avid soft tissue lateral to the right breast implant measuring 1.8 x 1.4 cm, SUV 6.0. This was also felt to be possibly inflammatory, but further characterization with ultrasound was recommended. There were no other areas of abnormal uptake reported. Repeat chest CT on 02/23/2020 showed soft tissue mass centered at the right hilum and encasing the pulmonary artery and the central bronchial structures. The largest AP diameter was 2.3 cm. It was not significantly changed compared to prior studies. A sub-solid nodule in the medial right upper lobe also appeared stable. The soft tissue mass adjacent to the posterior right breast implant also appeared stable. Overall there was no evidence of disease progression. She continued on observation/expectant management. She had seen Gumaro Alexandra for persistent sore throat. When it failed to improve on antibiotic therapy, she was seen by Dr. Owusu, and she was found to have a lesion in the area of the right tonsil. Neck CT on 05/16/2020 showed a peripheral enhancing lesion involving the right lingual tonsil and palate teen tonsil which was abutting the base of the tongue. It measured 11.7 x 9.1 mm. The appearance was highly suspicious for neoplasm. There was no associated cervical lymphadenopathy. A partially visualized right hilar mass appeared similar to the appearance of her prior CT scan. She recently had a biopsy of the tonsillar lesion done by Dr. Owusu. The pathology results have not yet been reported. She is seen for a follow-up visit. She recently was given a course of steroid therapy, and she says her energy is good whenever she is taking prednisone. She currently is on 5 mg daily, but in 2 days it will be decreased to 2.5 mg daily. Her ECOG score is 1. She has good appetite. She has no fever or night sweats. She says she always has sinus drainage. She still complains of having sore throat. She also complains that her mouth feels like it is on fire, and her tongue has a white coating to it. She occasionally gets short of breath. She has some cough, but not a lot. She does not complain of chest pain. She has occasional acid reflux. She has no other GI or complaints. She says her joints get stiff and sore. She does not complain of headache or dizziness, and she has no focal neurologic symptoms. Medications: Acetaminophen 2 Tablet (of 325 mg) Oral PRN, Chloraseptic Liquid Mouth/throat PRN, Hydrocodone-Acetaminophen 1 (5-325 mg) Tablet Oral q 4 hours PRN, Levothyroxine Sodium 1 (100 mcg) Tablet Oral q 5 days on -, LORazepam 0.5 Tablet (of 1 mg) Oral q 6 hours PRN, Mucinex Cough Childrens 1 tsp Liquid Oral PRN, Mucinex Maximum Strength 1 Tablet (of 1200 mg) Tablet SR 12 HR Oral PRN, Mupirocin 1 (2 %) Ointment Topical PRN, Probiotic 2 Capsule Oral daily, Vitamin B Complex Liquid Oral daily, Vitamin C 1 Packet Powder Oral daily, Vitamin D3 (5000 Units) Capsule Oral Take as Directed, Vitamin E 1 Capsule (of 400 Units) Oral daily, Zinc 1 Capsule (of 25 mg) Oral daily Allergies: Clindamycin HCl, Cyclobenzaprine HCl, Gabapentin, Levaquin, and Statins. Review of Systems: Constitutional - Her energy is good when she takes prednisone. Appetite is good and weight is stable. No fever, night sweats, or hot flashes. ECOG score is 1, ENMT - She has sinus congestion/drainage. Her mouth has been very tender and having a burning sensation. She has had persistent sore throat. No difficulty swallowing, Hematologic/Lymphatic - No abnormal bruising or bleeding, Respiratory - She has occasional shortness of breath. She has cough, but not a lot. No pleuritic pain or hemoptysis, Cardiovascular - No angina pain. No palpitations, Gastrointestinal - No nausea or vomiting. She occasional has heartburn, and she takes Pepcid as needed. No diarrhea or constipation. No blood in the stool or black stools, Genitourinary (F) - No dysuria or hematuria. No urinary frequency. No urgency or incontinence, Musculoskeletal - She has generalized stiffiness/soreness, Integumentary - No skin complications, Neurologic - No headache or dizziness. No numbness or tingling. No other focal neurologic symptoms, Psychiatric - No anxiety or depression. She takes 1/2 a lorazepam at bedside to help her sleep. Vital Signs: Performed on Jun 03, 2020 13:23 Height - 63.00 in Weight - 134.2 lbs BSA - 1.63 sq.m BMI - 23.77 Temperature - 97.5 F (LOW) Pulse - 92 /min Respiration - 18 /min BP - 127/77 mm(hg) O2 Sat - 96 % Pain - 0 Physical Examination: Constitutional - She looks pretty good generally, Eyes - Sclerae nonicteric. Conjunctivae clear, ENMT - There is a slight coating on the tongue. There is a prominence of tissue in the area of the right tonsil, Hematologic/Lymphatic - No cervical, clavicular, or axillary adenopathy, Respiratory - Lungs sound clear with some decrease in air movement bilaterally, Cardiovascular - Heart rhythm is regular. There is no murmur, gallop, or rub noted, Abdomen - Soft. Liver and spleen are not enlarged. There is no abdominal mass or ascites noted and there is no inguinal adenopathy, Extremities - No edema, Neurologic - No focal neurologic deficits noted. Lab/Imaging: Her CBC shows hemoglobin 13.0 g, white blood cell count 6900, and platelet count 228,000. Her comprehensive metabolic profile is unremarkable. Impression: 1. 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 By clinical evaluation, her disease appeared to be stage IB (T2a, N0, M0), but due to the location the tumor was deemed inoperable. 2. There was an additional small but enlarging pulmonary nodule in the superior lingula, suspicious for a second primary malignancy. Her other medical illnesses include: 3. COPD. 4. Hypothyroidism. 5. Hyperlipidemia with statin intolerance. 6. GERD. 7. Vitamin D deficiency. She began treatment with radiation concurrently with weekly carboplatin/Taxol chemotherapy on 02/14/2018. She received a total of 6 chemotherapy infusions, completed on 03/28/2018. She completed radiation on 04/01/2018 to a total dose of 6000 cGy. She then underwent SBRT to the lingular lesion, completed on 04/11/2018 to a total dose of 5400 cGy. Her restaging chest CT on 05/10/2018 showed evidence of progression of the right hilar and superior segment lower lobe neoplasm. Given those findings, she began a trial of immunotherapy with atezolizumab on 05/17/2018. Her restaging chest CT on 08/05/2018, following 4 cycles of treatment, showed some decrease in the right lower lobe mass with no evidence of significant disease progression. She continued treatment with atezolizumab. She completed cycle 6 on 08/30/2018. As of her follow-up visit on 09/20/2018, her treatment was put on hold due to side effects, mainly muscle pain and cramping. Her symptoms improved on steroid therapy. Her restaging CT scans on 09/29/2018 showed residual mass in the area of the right hilum, but no obvious disease progression. Restaging PET/CT on 12/31/2018 showed significant improvement compared to the prior study from July 2017. There was residual right upper lobe mass measuring 2.8 cm with SUV 4.3 compared to 10.5 on the prior study. It was felt that the pattern of uptake was more suggestive of postradiation therapy inflammation than true residual disease, though recurrence was not excluded. At that point she continued on observation/expectant management. Her restaging PET/CT on 11/11/2019 did show some uptake in the superior right hilum, but with the SUV suggestive of inflammatory activity. Recurrence, though, was not excluded. There was new uptake in soft tissue lateral to the right breast implant, also possibly inflammatory. 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 At that point she appeared stable clinically, and she continued observation/expectant management. She had recently been seeing Gumaro Aleaxndra for sore throat. It had persisted after antibiotic therapy, and at that point she was seen by Dr. Owusu. Her exam and subsequent neck CT showed findings suspicious for right tonsillar neoplasm. She has undergone biopsy, but the pathology result has not yet been reported. Plan: At least for now I will just wait for the biopsy results. If the tonsillar lesion is malignant, she will need a restaging PET/CT and she will then have further treatment as indicated. Signed By: Denny Estrella M.D. <<Signature on File>>
== END 2020-06-03 13:15 | disposition home or self-care (01) ==
LOC: ONCMED 13:16
PROVIDERS: PCP Nurse Practitioner; Visit Provider Internal Medicine Medical Oncology
DX: C34.31 Malignant neoplasm of lower lobe, right bronchus or lung (principal); R93.89 Abnormal findings on diagnostic imaging of other specified body structures; J35.9 Chronic disease of tonsils and adenoids, unspecified; J44.9 Chronic obstructive pulmonary disease, unspecified; E03.9 Hypothyroidism, unspecified; E78.5 Hyperlipidemia, unspecified; K21.9 Gastro-esophageal reflux disease without esophagitis; E55.9 Vitamin D deficiency, unspecified; Z92.3 Personal history of irradiation
CPT/HCPCS: 99214

== ENCOUNTER → 2020-08-12 14:07 | Outpatient (BNVA) | payer MEDICARE, MEDICAID, SELFPAY | PROVIDERS: PCP Nurse Practitioner; Visit Provider Nurse Practitioner Family | DX: K52.9 Noninfective gastroenteritis and colitis, unspecified (principal); E55.9 Vitamin D deficiency, unspecified; E03.9 Hypothyroidism, unspecified; R10.84 Generalized abdominal pain | CPT/HCPCS: 80053; 82306; 84443; 85025 ==

== ENCOUNTER → 2020-08-13 08:19 | Outpatient (BNVA) | payer MEDICARE, MEDICAID, SELFPAY | PROVIDERS: PCP Nurse Practitioner; Visit Provider Nurse Practitioner Family | DX: K52.9 Noninfective gastroenteritis and colitis, unspecified (principal); R10.10 Upper abdominal pain, unspecified; R19.5 Other fecal abnormalities | CPT/HCPCS: 82274; 87506 ==

== ENCOUNTER 2020-08-16 11:25 | Outpatient (CLI) | payer MEDICARE, MEDICAID, SELFPAY ==
[2020-08-16] MEDS: iohexol 300 mg/mL 50 mL Btl PO (12:23)
[2020-08-16] MEDS: iohexol 300 mg/mL 100 mL Btl IV (12:57)
--- NOTE | 2020-08-16 13:00 | CT_ITS ---
WS: [id number] CT scan of the abdomen and pelvis with Oral and IV contrast. Additional two-dimensional coronal and s agittal reconstruction was performed. 08/16/2020 Clinical Data: chronic diarrhea, abdominal pain, history of cancer Comparison: CT chest abdomen pelvis, 09/29/2018. DLP: 1058.[address] scans at [facility] use at least one of these dose optimization techniques: automat ed exposure control; mA and/or kV adjustment per patient size (includes targeted exams where dose is matched to clinical indication); or iterative reconstruction. Findings: The lower lungs show no nodules, masses or effusions. There is a small hiatal hernia. The liver, spl een, adrenal glands and pancreas are normal. There are clips in the gallbladder fossa from a cholecys tectomy. The kidneys show equal bilateral contrast excretion with no cyst or masses. No hydronephrosis or tiana l calculi are seen. The abdominal aorta is normal in size with minimal calcifications in the wall.. No appendicitis or diverticulitis is seen. There are sigmoid diverticula. Oral contrast is in the sto mach, small bowel and colon, and there is no bowel dilatation. The bladder is unremarkable. No inguinal hernia is seen. No abscess, adenopathy, ascites, mass, obstr uction or free air is seen. The uterus is absent. The bones of the lower thorax, lumbar spine, pelvis, and hips are normal. No bony metastatic lesions are seen. CT/CT abdomen pelvis w con* [id number] Impression: Negative for acute intra-abdominal or pelvic abnormalities.
== END 2020-08-16 11:26 | disposition home or self-care (01) ==
LOC: RADWPI 11:30
PROVIDERS: PCP Nurse Practitioner; Visit Provider Nurse Practitioner Family
DX: R19.7 Diarrhea, unspecified (principal); R10.9 Unspecified abdominal pain
CPT/HCPCS: 74177; Q9967

== ENCOUNTER 2020-09-21 11:30 | Emergency (ER) | payer MEDICARE, MEDICAID, SELFPAY ==
[2020-09-21] VITALS (9 sets, daily range): BP systolic 109–137; BP diastolic 68–92; PULSE 61–97; RESP 16–18; TEMP 36.6; O2SAT 96–98; BMI 23.9
--- NOTE | 2020-09-21 11:58 | CTR_ITS ---
PROCEDURE INFORMATION: Exam: CT Head Without Contrast Exam date and time: 09/21/2020 12:02 PM Age: 84 years old Clinical indication: Pain; Headache; Additional info: Headache x 4 wks TECHNIQUE: Imaging protocol: Computed tomography of the head without contrast. Radiation optimization: All CT scans at this facility use at least one of these dose optimization techniques: automated exposure control; mA and/or kV adjustment per patient size (includes targeted exams where dose is matched to clinical indication); or iterative reconstruction. COMPARISON: CT head wo con* [id number] 07/24/2019 7:43 AM RADIATION DOSE METRICS: Total DLP (mGy-cm): 740.85 FINDINGS: Brain: There is possible subtle hyperdensity seen along periphery right cerebral convexity for instance axial image 34, sagittal image 29, and coronal images 20 and 21. Previously, there appeared to be a fluid-filled sulcus in this location. Therefore, this could be related to prior hemorrhage or inflammatory process within sulcus or mild hyperdensity of cortex. Given patient's duration of symptoms and headache, would recommend MRI with and without contrast to assess for sulcal signal abnormality such as related to prior subarachnoid hemorrhage or inflammatory process or cortical abnormality. No other areas of hyperdensity to suggest acute hemorrhage. There is mild lucency in cerebral white matter compatible with microvascular change in patient of this age. No subdural or epidural fluid or blood collections. No midline shift or mass effect. No acute loss of garcia-white differentiation to suggest acute territorial infarct. Cerebral ventricles: No ventriculomegaly. Bones/joints: No acute fracture. Paranasal sinuses: There is no significant mucosal thickening in paranasal sinuses. No air-fluid levels. Mastoid air cells: No significant mastoid effusion. Soft tissues: Unremarkable as visualized. CT/CT head wo con* [id number] IMPRESSION: Possible subtle hyperdensity within or adjacent to right convexity sulcus as described. Recommend MRI with and without contrast. Radiation Dose CTDIVOL = (mGy): DLP = 740.85 (mGy-cm)
--- NOTE | 2020-09-21 11:58 | ECG_ITS ---
[facility] Test Date: 2020-09-21 Pat Name: Sendy Foley Department: Room: Gender: Female Finance Executive: : 1935 Requested By: Regulo Clement Order Number: [id number] Reading MD: SHANNON PETERSEN Measurements Intervals [place] Rate: 83 P: 76 MA: 173 QRS: -62 QRSD: 78 T: 63 QT: 365 QTc: 431 Interpretive Statements SINUS RHYTHM LEFT ANTERIOR FASCICULAR BLOCK [QRS AXIS <= -45, QR IN I, RS IN II] Compared to ECG 07/24/2019 08:12:56 Left anterior fascicular block now present Left-axis deviation no longer present Electronically Signed On 09-21-2020 18:54:19 SOFTWARE TEST TECHNICIAN by SHANNON PETERSEN [id number]
--- NOTE | 2020-09-21 12:16 | ED_ITS ---
HPI - Headache General: Chief Complaint: Headache Stated Complaint: HEADACHE Time Seen by Provider: 09/21/20 11:31 History of Present Illness: HPI Narrative: 84-year-old female presents emergency room with complaint of a headache on the left side of her head for the last 4 weeks. She also has some numbness sometimes at on the left side of her face other times it is on both sides of her face as well as on her left leg she seen a chiropractor is a nurse practitioner for these intermittent symptoms but has not had any further work-up. She denies any head trauma denies any difficulty speaking or swallowing at time she has had visual difficulty difficulties no weakness or ataxia in the legs. MD elicited complaint: headache Onset (ago): week(s) (4) Onset description: gradually Location: left Severity: severe Quality & Timing: throbbing Exacerbating factors: none Relieving factors: nothing Associated symptoms: Deny chest pain, confusion, cough, diaphoresis, eye pain, eye redness, fever(s), lightheadedness, loss of vision, malaise, nausea, neck stiffness, numbness, paresthesias, photophobia, pre-syncope, rash, seizures, short of breath, sound sensitivity, syncope, vomiting or weakness Treatments prior to arrival: acetaminophen and ibuprofen Review of Systems Const: Denies: fever(s), malaise or diaphoresis ENMT: Denies: throat pain, ear or mastoid pain, nasal discharge or nasal congestion Card: Denies: chest pain, lightheadedness, syncope or pre-syncope Resp: Denies: dyspnea, productive cough or non-productive cough GI: Denies: nausea : Denies: flank pain, difficulty voiding, dysuria, urinary frequency or urinary urgency Skin/Breast: Denies: rash Neuro: Denies: confusion PFSH ED PFSH: Medical History Adult hypothyroidism COPD (chronic obstructive pulmonary disease) Enrolled in chronic care management History of malignant neoplasm of lung 2018 chemo and radiation Mixed hyperlipidemia Neuropathy Seasonal allergic rhinitis due to pollen Surgical History H/O breast augmentation History of appendectomy History of cataract surgery both one in December and one in January History of cholecystectomy History of hysterectomy Family History Other Alzheimer disease COPD exacerbation Social History Smoking and tobacco status: former smoker Second hand smoke exposure: No Smoking risk assessment/counseling performed?: No Alcohol intake: never Desire information about alcohol rehabilitation?: No Counseling given: No Desire information about substance/drug rehabilitation?: No Counseling given: No Adopted: No Caregiver/support person: No Lives independently: Yes Household members: spouse Housing: House Marital status: service: No Current occupational status: retired History of recent travel: No Current gender identity: Female Physical Exam Const: COMMON NORMALS: no acute distress GENERAL APPEARANCE: cooperative and comfortable ORIENTATION/CONSCIOUSNESS: Yes awake, Yes oriented to person, Yes oriented to place and Yes oriented to time HENMT: COMMON NORMALS: normocephalic, atraumatic and hearing grossly normal bilaterally HEAD & SCALP: normocephalic and atraumatic Eye: COMMON NORMALS: Equal, round and reactive pupils present, EOMs intact bilaterally, conjunctivae normal and no scleral icterus CONJUNCTIVA: Yes conjunctivae normal PUPIL: Yes Equal, round and reactive pupils present DIRECT OPHTHALMOSCOPY: No photophobia Neck/C-Spine: COMMON NORMALS: full ROM, no lymphadenopathy, supple and no JVD Resp: COMMON NORMALS: normal respiratory effort, No retractions, No use of accessory muscles and clear to auscultation bilaterally AUSCULTATION: clear to auscultation bilaterally Cardio: COMMON NORMALS: no JVD, regular rate, regular rhythm and No murmurs present (Cardio) RATE: regular rate RHYTHM: regular rhythm GI: COMMON NORMALS: Soft to palpation and No hepatosplenomegaly present AUSCULTATION: Yes normoactive bowel sounds PALPATION: Yes Soft to palpation, No Tenderness to palpation present (GI), No Guarding due to palpation present (GI) and Yes No hepatosplenomegaly present Extremity: COMMON NORMALS: normal to inspection, capillary refill normal, no clubbing, cyanosis or edema, no calf tenderness and no pedal edema Neuro: SENSORIUM/ORIENTATION: Yes oriented to person, Yes oriented to place and Yes oriented to time Skin: COMMON NORMALS: no rashes or lesions noted GENERAL SKIN EXAM: no rashes or lesions noted Course Vital Signs: Vital signs: Vital Signs Temperature 97.9 F 09/21/20 11:32 Pulse Rate 70 09/21/20 17:41 Respiratory Rate 18 09/21/20 17:41 Blood Pressure 130/68 09/21/20 17:41 Pulse Oximetry 98 09/21/20 17:41 MDM - Headache MDM Narrative: Medical decision making narrative: CT showed area of concern so MRI was done MRI confirms subarachnoid hemorrhage without mass-effect. Discussed with radiology were making arrangements for transfer reviewed with patient Lala will accept on an ER to ER transfer neurosurgery has agreed to see her and evaluate in the emergency room transportation by [facility] air transportation not available due to weather Lab Data: Labs: Lab Results 09/21/20 Range/Units 12:05 Urine Color Colorless (Yellow) Urine Appearance Clear (CLEAR) Urine pH 7 (5-7) Ur Specific Gravit y 1.010 (1.005-1.030) Urine Protein Neg (Negative) Urine Glucose (UA) Norm (Normal) Urine Ketones Negative (Negative) Urine Blood Neg (Negative) Urine Nitrate Negative (Negative) Urine Bilirubin Neg (Negative) Urine Urobilinogen Norm (Negative) mg/dL Ur Leukocyte [place] ase Negative (Negative) Discharge Plan Discharge Patient Disposition: Transfer to ED Clinical Impression: Subarachnoid hemorrhage Condition: Stable Prescriptions: No Action lorazepam 1 mg tablet 0.5 - 1 mg PO TID PRN (Reason: unknown) RF: 0 albuterol sulfate [Ventolin HFA] 90 mcg/actuation HFA aerosol inhaler 2 puff INHALATION Q4H PRN (Reason: shortness of breath or wheezing) 30 Days Qty: 18 RF: 0 prednisone 5 mg tablet See Rx Instructions .ROUTE .COMPLEX RF: 0 vitamin B complex Tablet 1 tab PO DAILY RF: 0 Emergen-C 1,000 mg Powder Effervescent In Packet 1,000 ea PO DAILY RF: 0 Vitamin D3 125 mcg (5,000 unit) Tablet See Rx Instructions .ROUTE .COMPLEX RF: 0 levothyroxine 100 mcg tablet 100 mcg PO DAILY@04 RF: 0 Referrals: Gumaro Alexandra FNP-C [Primary Care Provider] - Coding Level of Care Code 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
[2020-09-21 12:44] LABS: Add Urine Microscopic? NO
[2020-09-21 12:52] LABS: Urine Appearance Clear (CLEAR); Urine Color Colorless (Yellow); pH Urine 7 (5-7)
[2020-09-21 12:53] LABS: Bilirubin Urine Neg (Negative); Blood Urine Neg (Negative); Glucose Urine UA Norm (Normal); Ketones Urine Negative (Negative); Leukocyte Esterase Urine Negative (Negative); Nitrate Urine Negative (Negative); Protein Urine Neg (Negative); Urobilinogen Urine Norm (Negative)
[2020-09-21] MEDS: ketorolac 30 mg/mL INJ 15 MG IVP (13:02)
[2020-09-21] MEDS: promethazine 25 mg/mL SDV 1 mL 12.5 MG IM (13:02)
--- NOTE | 2020-09-21 13:09 | MRR_ITS ---
PROCEDURE INFORMATION: Exam: MR Head Without and With Contrast Exam date and time: 09/21/2020 1:10 PM Age: 84 years old Clinical indication: Pain; Numbness / parasthesia; Left; Headache not specified; Patient HX: Intermittent CHRISTIAN w L sided numbness/weakness x 3-4 weeks; Additional info: Abnormal CT head TECHNIQUE: Imaging protocol: MR of the head without and with intravenous contrast. 3D rendering (Not supervised by radiologist): MIP and/or 3D reconstructed images were created by the technologist. Contrast material: PROHANCE; Contrast volume: 12 ml; Contrast route: INTRAVENOUS (IV); COMPARISON: CT head wo con* [id number] 09/21/2020 12:20 PM FINDINGS: Brain: 1 mm focus of high signal on the diffusion weighted images in the left middle cerebellar peduncle does not show signal dropout on ADC images and is high in signal on the FLAIR and T2 images as well and is consistent with T2 shine through.There are multiple foci of high T2 and FLAIR signal in the periventricular and subcortical white matter of the bilateral cerebral hemispheres, which at this age likely represent microvascular ischemic changes. There is diffuse cerebral atrophy present, consistent with this patient's age. There is scant acute subarachnoid hemorrhage along right convexity precentral and central sulci without focal mass effect or midline shift. After contrast administration, no abnormal enhancement is seen. Cerebral ventricles: Normal. No ventriculomegaly. Bones/joints: Unremarkable. Paranasal sinuses: Normal as visualized. No acute sinusitis. Mastoid air cells: Normal as visualized. No mastoid effusion. Orbits: Unremarkable. Soft tissues: Unremarkable. MR/MR head wo/w con [id number] IMPRESSION: 1. Scant acute right convexal subarachnoid hemorrhage without local mass effect or midline shift. 2. There are senescent changes in the brain as described above.
== END 2020-09-21 18:19 ==
PROVIDERS: Emergency Provider Family Medicine; PCP Nurse Practitioner
DX: I60.9 Nontraumatic subarachnoid hemorrhage, unspecified (principal); J44.9 Chronic obstructive pulmonary disease, unspecified; E78.2 Mixed hyperlipidemia; Z85.118 Personal history of other malignant neoplasm of bronchus and lung; Z87.891 Personal history of nicotine dependence
CPT/HCPCS: 12345; 70450; 70553; 81003; 93005; 96374; 96375; 99283; 99285; A9579; J1885; J2550

== ENCOUNTER 2020-11-07 10:51 | Outpatient (CLI) | payer MEDICARE, MEDICAID, SELFPAY ==
[2020-11-07 12:06] LABS: Alanine Aminotransferase 19 U/L (0-33); Albumin Level 3.8 g/dL (3.5-5.2); Alkaline Phosphatase 63 IU/L (35-105); Blood Urea Nitrogen 25 mg/dL (8-23); Carbon Dioxide 24 mmol/L (22-29); Chloride 97 mmol/L (98-107); Globulin 3.7 g/dL (1.3-4.6); Glucose 101 mg/dL (65-115); Osmolality Calculated 287 mOsm/kg (285-295); Sodium 136 mmol/L (136-145); Total Bilirubin 0.5 mg/dL (0.15-1.2); Total Protein 7.5 g/dL (6.6-8.7)
[2020-11-07 12:09] LABS: Anion Gap 19.2 (5-19); Aspartate Amino Transferase 22 U/L (0-32); Potassium 4.2 mmol/L (3.5-5.1)
[2020-11-07 12:26] LABS: Basophils % 0.5 %; Hematocrit 40.1 % (37.0-47.0); Hemoglobin 13.4 g/dL (11.5-15.3); Lymphocytes # 0.9 10^3/uL (0.8-4.8); Lymphocytes % 10.6 %; Mean Corpuscular HGB Conc 33.4 g/dL (30.0-36.0); Mean Corpuscular Hemoglobin 31.1 pg (28.0-34.0); Mean Platelet Volume 9.3 fL (7.4-10.4); Monocytes # 0.6 10^3/uL (0.2-0.9); Monocytes % 7.5 %; Neutrophils # 6.63 10^3/uL (1.8-7.7); Neutrophils % 80.7 %; Nucleated Red Blood Cells % 0 %; Platelet Count 324 10^3/cmm (130-400); Red Blood Count 4.31 10^6/uL (4.1-5.3); Red Cell Distribution Width 13.2 % (12.1-15.1); White Blood Count 8.2 10^3/uL (4.0-10.0)
--- NOTE | 2020-11-07 17:55 | ONC FU_ITS ---
Dr. Estrella Patient Follow-Up Note Patient: Sendy Foley Unit #: [id number]: [id number] Dicatated By: Denny Estrella M.D.Date of Visit:Nov 07, 2020 Onc Med Follow-up/Prog Note Chief Complaint: Lung cancer. 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 By clinical evaluation disease appeared to be stage IB (T2a, N0, M0) at initial diagnosis, but with subsequent progression. In addition, by CT there also was a suspected small 2nd primary lesion involving the lingula. She had presented with persistent cough. Her initial chest x-ray, back in November 2016, showed indistinct increased parenchymal opacities in the right hilar region, suggesting possible mass. Further evaluation with chest CT on 12/09/2016 reported probable fibrosis involving the superior segment of the right lower lobe and additional probable fibrosis in the medial aspect of the right middle lobe. A 3-month follow-up study was recommended. She then had a repeat chest CT on 07/12/2017. It showed enlarging spiculated right hilar mass measuring 3.6 x 2.6 x 3.0 cm, suspicious for neoplasm. Also noted was a right hilar lymph node measuring 1.4 cm versus extension of tumor into the right hilum. There was evidence of underlying emphysema and prior granulomatous disease. There was probable scarring or fibrosis along the medial right upper lobe. PET/CT on 08/07/2017 showed 1.8 cm spiculated malignancy in the right infrahilar region with SUV 10.5, consistent with primary bronchogenic malignancy. There were no other areas of abnormal uptake. A 7 mm opacity in the superior lingula was too small to characterize by PET. She underwent bronchoscopy by Dr. Self on 09/06/2017 and again on 11/03/2017. On both occasions there was evidence of effacement to the orifice of the posterior segment of the right lower lobe. Biopsies, though, were nondiagnostic. Her further evaluation included repeat chest CT on 11/24/2017 which again showed spiculated mass in the right hilar region extending into the parenchyma of the superior segment right lower lobe and possibly into the right middle lobe posteriorly. It measured 3 x 3.2 x 2.3 cm. Also noted was an ill-defined spiculated nodule in the superior lingular segment, more apparent compared to the prior exam, and estimated at 9.5 mm. On 01/25/2018 she underwent repeat bronchoscopy with EBU S and fine-needle aspiration biopsy of the right hilar mass by Dr. Vida Solorio in [place]. 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 It was noted that the specimen was marginal for any ancillary studies. She began radiation to the right hilar lesion on 02/14/2018. It was administered concurrently with weekly carboplatin/Taxol chemotherapy. She completed her 6th weekly chemotherapy treatment on 03/28/2018. She completed radiation on 04/01/2018 to a total dose of 6000 cGy. She then underwent SBRT to the lingular lesion, completed on 04/11/2018 to a total dose of [address] on 05/10/2018 showed interval enlargement of the right hilar/superior segment lower lobe mass measuring 7.5 x 4.5 x 2.6 cm. A 67 mm nodular focus in the left upper lobe appeared unchanged. New right upper lobe and increased right upper lobe medial focal opacity appeared nonspecific. Given those findings, she then began a trial of immunotherapy with atezolizumab, cycle 1 day 1 on 05/17/2018. She continued immunotherapy with atezolizumab at 3-week intervals. As of 07/19/2018 she received her 4th cycle of treatment. Thus far she has tolerated it well. Restaging CT of the chest on 08/05/2018 showed some decrease in the size of the neoplastic mass lesion in the superior segment right lower lobe compared to the study from April. There was possible extension of neoplastic process in the right middle lobe. There was evidence of postradiation changes of the lingula. Overall, there was no evidence of significant disease progression. She continued with cycle 6 of atezolizumab on 08/30/2018. As of her follow-up visit on 09/20/2018 her treatment was put on hold due to side effects, primarily muscle pain and cramping. Restaging CT of the chest, abdomen, and pelvis on 09/29/2018 showed soft tissue lesion extending posteriorly from the right hilum which appear most consistent with posttreatment scar. It measured 4.8 x 1.6 x 2.6 cm. Some component of residual and/or recurrent tumor was not excluded. Also noted was 5-10% compression fracture involving the T9 vertebral body, indeterminate age. The abdomen/pelvis showed severe colonic diverticulosis, but no evidence of metastatic involvement. With those findings, she continued observation/expectant management for the lung cancer. Her restaging PET/CT on 12/31/2018 showed improvement in the right upper lobe mass, measuring 2.8 cm with SUV down to 4.3 compared to 10.5 on the prior study from July 2017. It was felt that the pattern of uptake was more suggestive of post radiation therapy inflammation than true residual disease, though a small region of recurrence was not excluded. A discrete lingular pulmonary nodule noted on the prior study was no longer evident. Her other medical illnesses include COPD, hyperlipidemia, hypothyroidism, GERD, and vitamin D deficiency. She has a history of smoking for 50 years, in the range of 1-2 packs of cigarettes daily. She quit smoking in 1999. INTERIM HISTORY: Her surveillance CT scans in March 2019 and in September 2019 showed persistent soft tissue density in the right hilar region with no obvious disease progression. Restaging PET/CT on 11/11/2019 showed unchanged size of right upper lobe lung lesion and it appeared to have just mild inflammatory activity. There was new uptake in the superior right hilum with SUV 5.0, possibly inflammatory but recurrence was not excluded. There was FDG avid soft tissue lateral to the right breast implant measuring 1.8 x 1.4 cm, SUV 6.0. This was also felt to be possibly inflammatory, but further characterization with ultrasound was recommended. There were no other areas of abnormal uptake reported. Repeat chest CT on 02/23/2020 showed soft tissue mass centered at the right hilum and encasing the pulmonary artery and the central bronchial structures. The largest AP diameter was 2.3 cm. It was not significantly changed compared to prior studies. A sub-solid nodule in the medial right upper lobe also appeared stable. The soft tissue mass adjacent to the posterior right breast implant also appeared stable. Overall there was no evidence of disease progression. She continued on observation/expectant management. She had seen Gumaro Alexandra for persistent sore throat. When it failed to improve on antibiotic therapy, she was seen by Dr. Owusu, and she was found to have a lesion in the area of the right tonsil. Neck CT on 05/16/2020 showed a peripheral enhancing lesion involving the right lingual tonsil and palate teen tonsil which was abutting the base of the tongue. It measured 11.7 x 9.1 mm. The appearance was highly suspicious for neoplasm. There was no associated cervical lymphadenopathy. A partially visualized right hilar mass appeared similar to the appearance of her prior CT scan. She recently had a biopsy of the tonsillar lesion done by Dr. Owusu. Pathology apparently was benign, though I did not receive the actual report. At her follow-up visit in May 2020 she appeared stable clinically, and she continued on observation/expectant management. On 09/21/2020 she had presented to the emergency room with severe headache. Her head MRI showed findings consistent with a scant acute right convex little subarachnoid hemorrhage without local mass-effect or midline shift. She was transferred to [facility] in [place] for admission. CT angiogram of the head showed no signs of aneurysm or vascular malformation. 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 She started treatment with Keppra and she was discharged home on 09/27/2020. She is seen now for a scheduled follow-up visit. She has not felt good since her hospitalization last month. She does complain that she is extremely tired, to the point that she cannot do anything. She mainly just sits in a chair or lies on her couch. Her ECOG score is 3. She also complains that she can eat, and her weight is down about 15 pounds. She has not had fever or night sweats. She has been having pain in her mid to upper back on the left side and she also complains that all of her bones have been hurting. She has only a little bit of cough and she does not complain of shortness of breath or chest pain. She has had some nausea. She complains that since May her stools have had a yellow-orange coloration. She has had no problems with bladder function. She says her headaches are better. She does have some dizziness. She occasionally has numbness. Medications: Acetaminophen 2 Tablet (of 325 mg) Oral PRN, Chloraseptic Liquid Mouth/throat PRN, Hydrocodone-Acetaminophen 1 (5-325 mg) Tablet Oral q 4 hours PRN, Keppra 1 Tablet (of 500 mg) Oral b.i.d., Levothyroxine Sodium 1 (100 mcg) Tablet Oral q 5 days on , LORazepam 0.5 Tablet (of 1 mg) Oral q 6 hours PRN, Mucinex Cough Childrens 1 tsp Liquid Oral PRN, Mucinex Maximum Strength 1 Tablet (of 1200 mg) Tablet SR 12 HR Oral PRN, Mupirocin 1 (2 %) Ointment Topical PRN, Probiotic 2 Capsule Oral daily, Vitamin B Complex Liquid Oral daily, Vitamin C 1 Packet Powder Oral daily, Vitamin D3 (5000 Units) Capsule Oral Take as Directed, Vitamin E 1 Capsule (of 400 Units) Oral daily, Zinc 1 Capsule (of 25 mg) Oral daily Allergies: Clindamycin HCl, Cyclobenzaprine HCl, Gabapentin, Levaquin, and Statins. Vital Signs: Performed on Nov 07, 2020 12:35 Height - 63.00 in Weight - 119.8 lbs (LOW) BSA - 1.56 sq.m BMI - 21.22 Temperature - 97.5 F (LOW) Pulse - 79 /min Respiration - 18 /min BP - 105/72 mm(hg) O2 Sat - 99 % Pain - 0 Fatigue - 8 Physical Examination: Constitutional - She appears somewhat weak generally, Eyes - Sclerae nonicteric. Conjunctivae clear, ENMT - No lesions noted in the oral cavity, Hematologic/Lymphatic - No cervical, clavicular, or axillary adenopathy, Respiratory - Lungs sound clear with diminished air movement bilaterally, Cardiovascular - Heart rhythm is regular. There is no murmur, gallop, or rub noted, Abdomen - Soft. Liver and spleen are not enlarged. There is no abdominal mass or ascites noted and there is no inguinal adenopathy, Extremities - No edema, Neurologic - No focal neurologic deficits noted. Lab/Imaging: Test performed on Nov 07, 2020 12:13 WBC 8.2 10 3/uL RBC 4.31 10 6/uL HGB 13.4 g/dL HCT 40.1 % MCV 93.0 fL MCH 31.1 pg MCHC 33.4 g/dL RDW 13.2 % Platelet Count 324 10 3/cmm MPV 9.3 fL Neutrophils 6.63 10 3/uL Lymphocytes 0.9 10 3/uL Monocytes 0.6 10 3/uL Eosinophils 0.0 10 3/uL Basophils 0.0 10 3/uL Neutrophil % 80.7 % Lymphocyte % 10.6 % Monocyte % 7.5 % Eosinophil % 0.0 % Basophils % 0.5 % NRBC % 0 % Problem List: 1. Adenocarcinoma involving the infrahilar region of the right lung/right lower lobe. By clinical evaluation, her disease appeared to be stage IB (T2a, N0, M0), but due to the location the tumor was deemed inoperable. 2. There was an additional small but enlarging pulmonary nodule in the superior lingula, suspicious for a second primary malignancy. 3. COPD. 4. Hypothyroidism. 5. Hyperlipidemia with statin intolerance. 6. GERD. 7. Vitamin D deficiency. 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 By clinical evaluation, her disease appeared to be stage IB (T2a, N0, M0), but due to the location the tumor was deemed inoperable. An additional small but enlarging pulmonary nodule in the superior lingula, suspicious for a second primary malignancy. She was treated with radiation concurrently with weekly carboplatin/paclitaxel chemotherapy, completed on 03/28/2018 to a total radiation dose of 6000 cGy. She then underwent SBRT to the lingular lesion, completed on 04/11/2018 to a total dose of 5400 cGy. Her restaging chest CT on 05/10/2018 showed evidence of progression of the right hilar and superior segment lower lobe neoplasm. Given those findings, she began a trial of immunotherapy with atezolizumab on 05/17/2018. Her restaging chest CT on 08/05/2018, following 4 cycles of treatment, showed some decrease in the right lower lobe mass with no evidence of significant disease progression. She continued treatment with atezolizumab. She completed cycle 6 on 08/30/2018. As of her follow-up visit on 09/20/2018, her treatment was put on hold due to side effects, mainly muscle pain and cramping. Thus far during follow-up there has been no documented progression of the lung cancer. She had a hospitalization in September 2020 for suspected subarachnoid hemorrhage versus inflammatory leptomeningitis. Associated with that, she has had a significant decline in her performance status. It is uncertain to what extent any of this may be related to the underlying lung cancer, but she also has had significant weight loss, which is worrisome. As such, I will schedule her for restaging PET/CT, but that will be subject to verification of insurance coverage. Signed By: Denny Estrella M.D. <<Signature on File>>
== END 2020-11-07 10:52 | disposition home or self-care (01) ==
PROVIDERS: PCP Nurse Practitioner; Visit Provider Internal Medicine Medical Oncology
DX: C34.31 Malignant neoplasm of lower lobe, right bronchus or lung (principal); R63.4 Abnormal weight loss; Z68.21 Body mass index [BMI] 21.0-21.9, adult; Z79.899 Other long term (current) drug therapy; Z92.3 Personal history of irradiation
CPT/HCPCS: 36415; 80053; 85025; 99214

== ENCOUNTER 2020-11-28 17:06 | Emergency (ER) | payer MEDICARE, MEDICAID, SELFPAY ==
[2020-11-28 17:25] VITALS: BP 103/72; PULSE 93; RESP 16; TEMP 36.6; O2SAT 98; BMI 20.3
--- NOTE | 2020-11-28 17:31 | CTR_ITS ---
PROCEDURE INFORMATION: Exam: CT Head Without Contrast Exam date and time: 11/28/2020 6:15 PM Age: 85 years old Clinical indication: Injury or trauma; Fall; Blunt trauma (contusions or hematomas); Additional info: Multiple falls today TECHNIQUE: Imaging protocol: Computed tomography of the head without contrast. Radiation optimization: All CT scans at this facility use at least one of these dose optimization techniques: automated exposure control; mA and/or kV adjustment per patient size (includes targeted exams where dose is matched to clinical indication); or iterative reconstruction. COMPARISON: 1. CT head wo con* [id number] 09/21/2020 12:20 PM 2. MR head wo/w con [id number] 09/21/2020 2:32:[address] head wo con* [id number] 07/24/2019 7:43:00 AM RADIATION DOSE METRICS: Total DLP (mGy-cm): 1424.53 FINDINGS: Brain: Again noted is hyperdensity involving the right precentral gyrus not significantly changed compared with CT scan of 09/21/2020 in this corresponds with the region where subarachnoid hemorrhage was reported on 09/21/2020 MRI examination. It is uncertain whether this represents residual abnormality, or recurrent hemorrhage in the same location. There is no intracranial mass. Cerebral ventricles: There is mild ventriculomegaly with enlargement of ventricles compared with 09/21/2020. There is also increasing low-density in the periventricular white matter is specially adjacent to the frontal horns which may represent some transependymal migration of CSF. Bones/joints: Unremarkable. No acute fracture. Paranasal sinuses: Visualized sinuses are unremarkable. No fluid levels. Mastoid air cells: Visualized mastoid air cells are well aerated. Soft tissues: Unremarkable. CT/CT head wo con* [id number] IMPRESSION: 1. Developing hydrocephalus. 2. Question of residual versus recurrent subarachnoid hemorrhage and posttraumatic change in the right posterior frontal lobe as described. Radiation Dose CTDIVOL = (mGy): DLP = 1424.53 (mGy-cm)
--- NOTE | 2020-11-28 17:56 | ED_ITS ---
Documented by User: KAY Dutton 11/28/20 21:33 HPI - Weakness General: Chief complaint: Weakness Stated complaint: GENERALIZED WEAKNESS/ NAUSEA Time Seen by Provider: 11/28/20 17:53 History of Present Illness: HPI Narrative: Patient complains about weakness last 2 days. She had for day and had to call police to help get her up to her chair. She lives by herself. Just recently diagnosed with lung cancer. Has felt nauseous also. Denies any fever chills shortness of breath chest pain or other related problems. Denies depression. MD Complaint: generalized weakness Onset (ago): day(s) Duration: progressively worsening Location: generalized Associated symptoms: Reports nausea; Denies chest pain, chills, easy bruising, fever(s) or headache(s) Review of Systems Narrative: Weakness got down the floor today and had to call the police to help get her up in chair. Const: Denies: fever(s), chills or body aches Eyes: Denies: change in vision or blurry vision ENMT: Denies: throat pain or nasal congestion Card: Denies: chest pain or dyspnea on exertion Resp: Denies: dyspnea, productive cough or non-productive cough GI: Reports: nausea Musc: Denies: extremity pain Skin/Breast: Denies: rash Neuro: Denies: headache(s) Psych: Denies: anxiety or depression Jonny/Lymph: Denies: easy bruising PFSH ED PFSH: Medical History Adult hypothyroidism COPD (chronic obstructive pulmonary disease) Enrolled in chronic care management History of malignant neoplasm of lung 2018 chemo and radiation Mixed hyperlipidemia Neuropathy Seasonal allergic rhinitis due to pollen Surgical History H/O breast augmentation History of appendectomy History of cataract surgery both one in December and one in January History of cholecystectomy History of hysterectomy Family History Other Alzheimer disease COPD exacerbation Social History Smoking and tobacco status: former smoker Second hand smoke exposure: No Smoking risk assessment/counseling performed?: No Alcohol intake: never Desire information about alcohol rehabilitation?: No Counseling given: No Desire information about substance/drug rehabilitation?: No Counseling given: No Adopted: No Caregiver/support person: No Lives independently: Yes Household members: spouse Housing: House Marital status: service: No Current occupational status: retired History of recent travel: No Current gender identity: Female Physical Exam Const: COMMON NORMALS: no acute distress, average body habitus and patient oriented x3 HENMT: COMMON NORMALS: normocephalic HEAD & SCALP: normal to inspection and normocephalic FACE & SINUS: normal facial exam Eye: COMMON NORMALS: conjunctivae normal GENERAL EYE: appearance normal, both eyes and all related structures CONJUNCTIVA: Yes conjunctivae normal Neck/C-Spine: COMMON NORMALS: no JVD Chest: COMMONS NORMALS: normal inspection of the chest Resp: COMMON NORMALS: normal respiratory effort and clear to auscultation bilaterally AUSCULTATION: clear to auscultation bilaterally Cardio: COMMON NORMALS: no JVD, regular rate and regular rhythm RATE: regular rate RHYTHM: regular rhythm GI: COMMON NORMALS: Normal to inspection, nondistended, normoactive bowel sounds present Extremity: COMMON NORMALS: normal to inspection and full ROM Neuro: COMMON NORMALS: patient oriented x3, moves all extremities, no focal motor deficits and no sensory deficits noted Course Vital Signs: Vital signs: Vital Signs Temperature 97.8 F 11/28/20 17:25 Pulse Rate 93 11/28/20 17:25 Respiratory Rate 16 11/28/20 17:25 Blood Pressure 103/72 11/28/20 17:25 Pulse Oximetry 98 11/28/20 17:25 MDM - Weakness MDM Narrative: Medical decision making narrative: Discussed case with Dr. Winston. I spoke with Dr. Palmer neurosurgeon at [facility]. He agrees that patient needs to be admitted they just do not have floor beds available right now that if we can hold her as are the ER told her there to be admitting that would be best course of action. Spoke with Dr. Kenny at the ER at [facility] and she agrees accept patient on transfer pending admission to a floor bed at [facility]. Lab Data: Labs: Lab Results 11/28/20 11/28/20 11/28/20 Range/Units 18:56 18:56 19:20 WBC 6.8 (4.0-10.0) 10^3/ uL RBC 4.56 (4.1-5.3) 10^6/u L Hgb 14.0 (11.5-15.3) g/dL Hct 43.3 (37.0-47.0) % MCV 95.0 (81-99) fL MCH 30.7 (28.0-34.0) pg MCHC 32.3 (30.0-36.0) g/dL RDW 13.8 (12.1-15.1) % Plt Count 223 (130-400) 10^3/c mm MPV 9.9 (7.4-10.4) fL Neut % (Auto) 84.7 % Lymph % (Auto) 7.8 % [place] % (Auto) 6.8 % Eos % (Auto) 0.0 % Baso % (Auto) 0.3 % Neut # (Auto) 5.76 (1.8-7.7) 10^3/u L Lymph # (Auto) 0.5 L (0.8-4.8) 10^3/u L [place] # (Auto) 0.5 (0.2-0.9) 10^3/u L Eos # (Auto) 0.0 (0.0-0.8) 10^3/u L Baso # (Auto) 0.0 (0.0-0.1) 10^3/u L Nucleated RBC % (a uto) 0 % Nucleated RBCs # 0.0 /100WBC Sodium 140 (136-145) mmol/L Potassium 3.5 (3.5-5.1) mmol/L Chloride 99 (98-107) mmol/L Carbon Dioxide 27 (22-29) mmol/L Anion Gap 17.5 (5-19) BUN 41 H (8-23) mg/dL Creatinine 0.6 (0.5-0.9) mg/dL GFR Calculation Not Reportable Glucose 108 (65-115) mg/dL Calculated Osmolal ity 301 H (285-295) mOsm/k g Calcium 10.0 (8.5-10.5) mg/dL Total Bilirubin 0.9 (0.15-1.2) mg/dL AST 26 (0-32) U/L ALT 51 H (0-33) U/L Alkaline Phosphata se 61 (35-105) IU/L Total Protein 7.1 (6.6-8.7) g/dL Albumin 3.9 (3.5-5.2) g/dL Globulin 3.2 (1.3-4.6) g/dL Urine Color Yellow (Yellow) Urine Appearance Clear (CLEAR) Urine pH 5 (5-7) Ur Specific Gravit y 1.025 (1.005-1.030) Urine Protein Trace (Negative) Urine Glucose (UA) Norm (Normal) Urine Ketones 2+ H (Negative) Urine Blood Neg (Negative) Urine Nitrate Negative (Negative) Urine Bilirubin 1+ H (Negative) Urine Urobilinogen 1 H (Negative) mg/dL Ur Leukocyte [place] ase Negative (Negative) Urine RBC 0-4 H (0-2) /hpf Urine WBC None (0-5) /hpf Ur Squamous Epith Cells 5-10 H (0-5) /hpf Amorphous Sediment 3+ /hpf Urine Bacteria Trace (NONE) /hpf Urine Mucus 2+ /hpf Discharge Plan Discharge Patient Disposition: Xfer Short-Term Hosp Clinical Impression: History of subdural hemorrhage, Weakness Hydrocephalus Qualifiers: Hydrocephalus type: unspecified Qualified Code(s): G91.9 - Hydrocephalus, unspecified Condition: Stable Referrals: Gumaro Alexandra FNP-C [Primary Care Provider] - Coding Level of Care Code ED Can[employer] Supervisor for [facility] Fwd Exam Comprehensive Documented by User: Lilliana Winston MD 11/28/20 21:33 HPI - Weakness General: Chief complaint: Weakness Stated complaint: GENERALIZED WEAKNESS/ NAUSEA Time Seen by Provider: 11/28/20 17:53 PFSH ED PFSH: Medical History Adult hypothyroidism COPD (chronic obstructive pulmonary disease) Enrolled in chronic care management History of malignant neoplasm of lung 2018 chemo and radiation Mixed hyperlipidemia Neuropathy Seasonal allergic rhinitis due to pollen Surgical History H/O breast augmentation History of appendectomy History of cataract surgery both one in December and one in January History of cholecystectomy History of hysterectomy Family History Other Alzheimer disease COPD exacerbation Social History Smoking and tobacco status: former smoker Second hand smoke exposure: No Smoking risk assessment/counseling performed?: No Alcohol intake: never Desire information about alcohol rehabilitation?: No Counseling given: No Desire information about substance/drug rehabilitation?: No Counseling given: No Adopted: No Caregiver/support person: No Lives independently: Yes Household members: spouse Housing: House Marital status: service: No Current occupational status: retired History of recent travel: No Current gender identity: Female Course Reevaluation(s): Reevaluation #1: I saw this patient with Yehuda Rubi NP. She presents with vague complaints of not feeling well, weakness, nausea for several days. Today she fell but denies hitting her head. She was trying to get out of a chair and was too weak to stand. She was seen September 21 in this ER with some neurologic symptoms and a headache that had been going on for about a month. She was diagnosed at that time with a small subarachnoid hemorrhage and transferred to [facility] for definitive care. She did not have any trauma prior to that finding as far she recalls. Since that time she has been diagnosed with lung cancer as well. CT today shows question of persistent or recurrent subarachnoid blood some swelling of the sulci, and developing hydrocephalus. They have called up to [facility] and spoke to the neurosurgeon there and they would like her to be transferred there. We are making arrangements for that at this time. The patient understands the plan of care and is in agreement. Rosanna rologically on exam she is grossly intact just with diffuse weakness. She has a great deal of difficulty trying to stand and ambulate. She lives alone. She will be transferred to the ER there at [facility] while awaiting a bed on the floor for neurosurgery. Vital Signs: Vital signs: Vital Signs Temperature 97.8 F 11/28/20 17:25 Pulse Rate 93 02/18/21 17:25 Respiratory Rate 16 11/28/20 17:25 Blood Pressure 103/72 11/28/20 17:25 Pulse Oximetry 98 11/28/20 17:25 MDM - Weakness Lab Data: Labs: Lab Results 11/28/20 11/28/20 11/28/20 Range/Units 18:56 18:56 19:20 WBC 6.8 (4.0-10.0) 10^3/ uL RBC 4.56 (4.1-5.3) 10^6/u L Hgb 14.0 (11.5-15.3) g/dL Hct 43.3 (37.0-47.0) % MCV 95.0 (81-99) fL MCH 30.7 (28.0-34.0) pg MCHC 32.3 (30.0-36.0) g/dL RDW 13.8 (12.1-15.1) % Plt Count 223 (130-400) 10^3/c mm MPV 9.9 (7.4-10.4) fL Neut % (Auto) 84.7 % Lymph % (Auto) 7.8 % [place] % (Auto) 6.8 % Eos % (Auto) 0.0 % Baso % (Auto) 0.3 % Neut # (Auto) 5.76 (1.8-7.7) 10^3/u L Lymph # (Auto) 0.5 L (0.8-4.8) 10^3/u L [place] # (Auto) 0.5 (0.2-0.9) 10^3/u L Eos # (Auto) 0.0 (0.0-0.8) 10^3/u L Baso # (Auto) 0.0 (0.0-0.1) 10^3/u L Nucleated RBC % (a uto) 0 % Nucleated RBCs # 0.0 /100WBC Sodium 140 (136-145) mmol/L Potassium 3.5 (3.5-5.1) mmol/L Chloride 99 (98-107) mmol/L Carbon Dioxide 27 (22-29) mmol/L Anion Gap 17.5 (5-19) BUN 41 H (8-23) mg/dL Creatinine 0.6 (0.5-0.9) mg/dL GFR Calculation Not Reportable Glucose 108 (65-115) mg/dL Calculated Osmolal ity 301 H (285-295) mOsm/k g Calcium 10.0 (8.5-10.5) mg/dL Total Bilirubin 0.9 (0.15-1.2) mg/dL AST 26 (0-32) U/L ALT 51 H (0-33) U/L Alkaline Phosphata se 61 (35-105) IU/L Total Protein 7.1 (6.6-8.7) g/dL Albumin 3.9 (3.5-5.2) g/dL Globulin 3.2 (1.3-4.6) g/dL Urine Color Yellow (Yellow) Urine Appearance Clear (CLEAR) Urine pH 5 (5-7) Ur Specific Gravit y 1.025 (1.005-1.030) Urine Protein Trace (Negative) Urine Glucose (UA) Norm (Normal) Urine Ketones 2+ H (Negative) Urine Blood Neg (Negative) Urine Nitrate Negative (Negative) Urine Bilirubin 1+ H (Negative) Urine Urobilinogen 1 H (Negative) mg/dL Ur Leukocyte [place] ase Negative (Negative) Urine RBC 0-4 H (0-2) /hpf Urine WBC None (0-5) /hpf Ur Squamous Epith Cells 5-10 H (0-5) /hpf Amorphous Sediment 3+ /hpf Urine Bacteria Trace (NONE) /hpf Urine Mucus 2+ /hpf Discharge Plan Discharge Patient Disposition: Xfer Short-Term Hosp Clinical Impression: History of subdural hemorrhage, Weakness Hydrocephalus Qualifiers: Hydrocephalus type: unspecified Qualified Code(s): G91.9 - Hydrocephalus, unspecified Condition: Stable Referrals: Gumaro Alexandra, ORE TESTER-C [Primary Care Provider] - Coding Level of Care Code ED Can[employer] Supervisor for [facility] Fwd Exam Comprehensive
[2020-11-28 19:03] LABS: Basophils % 0.3 %; Hematocrit 43.3 % (37.0-47.0); Lymphocytes # 0.5 10^3/uL (0.8-4.8); Lymphocytes % 7.8 %; Mean Corpuscular HGB Conc 32.3 g/dL (30.0-36.0); Mean Corpuscular Hemoglobin 30.7 pg (28.0-34.0); Mean Platelet Volume 9.9 fL (7.4-10.4); Monocytes # 0.5 10^3/uL (0.2-0.9); Monocytes % 6.8 %; Neutrophils # 5.76 10^3/uL (1.8-7.7); Neutrophils % 84.7 %; Nucleated Red Blood Cells % 0 %; Platelet Count 223 10^3/cmm (130-400); Red Blood Count 4.56 10^6/uL (4.1-5.3); Red Cell Distribution Width 13.8 % (12.1-15.1); White Blood Count 6.8 10^3/uL (4.0-10.0)
[2020-11-28 19:26] LABS: Alanine Aminotransferase 51 U/L (0-33); Albumin Level 3.9 g/dL (3.5-5.2); Alkaline Phosphatase 61 IU/L (35-105); Anion Gap 17.5 (5-19); Aspartate Amino Transferase 26 U/L (0-32); Blood Urea Nitrogen 41 mg/dL (8-23); Carbon Dioxide 27 mmol/L (22-29); Chloride 99 mmol/L (98-107); Globulin 3.2 g/dL (1.3-4.6); Glucose 108 mg/dL (65-115); Osmolality Calculated 301 mOsm/kg (285-295); Potassium 3.5 mmol/L (3.5-5.1); Sodium 140 mmol/L (136-145); Total Bilirubin 0.9 mg/dL (0.15-1.2); Total Protein 7.1 g/dL (6.6-8.7)
[2020-11-28 19:30] VITALS: BP 116/83; PULSE 73; O2SAT 97
[2020-11-28 20:44] LABS: Bilirubin Urine 1+ (Negative); Blood Urine Neg (Negative); Glucose Urine UA Norm (Normal); Ketones Urine 2+ (Negative); Leukocyte Esterase Urine Negative (Negative); Nitrate Urine Negative (Negative); Protein Urine Trace (Negative); Specific Gravity, Urine 1.025 (1.005-1.030); Urine Appearance Clear (CLEAR); Urine Color Yellow (Yellow); Urobilinogen Urine 1 mg/dL (Negative); pH Urine 5 (5-7)
[2020-11-28 20:45] LABS: Add Urine Microscopic? YES
[2020-11-28 20:46] LABS: Amorphous Sediment Urine 3+ /hpf; Bacteria Urine TRACE /hpf; Mucus Urine 2+ /hpf; RBC Urine 0-4 /hpf (0-2)
[2020-11-28 20:47] LABS: Add Urine Culture? No
[2020-11-28 21:40] VITALS: BP 115/81; PULSE 84; RESP 16; O2SAT 96
[2020-11-28 22:29] VITALS: BP 128/85; PULSE 105; O2SAT 96
== END 2020-11-28 22:30 | disposition short-term general hospital (02) ==
PROVIDERS: Emergency Provider Nurse Practitioner Family; PCP Nurse Practitioner
DX: G91.9 Hydrocephalus, unspecified (principal); R53.1 Weakness; J44.9 Chronic obstructive pulmonary disease, unspecified; Z85.118 Personal history of other malignant neoplasm of bronchus and lung; E78.2 Mixed hyperlipidemia; Z87.891 Personal history of nicotine dependence
CPT/HCPCS: 70450; 80053; 81001; 85025; 99285

== ENCOUNTER 2020-12-14 15:48 | Inpatient (IN) | payer MEDICARE, MEDICAID, SELFPAY ==
[2020-12-14] VITALS (61 sets, daily range): BP systolic 61–139; BP diastolic 29–98; PULSE 106–180; RESP 16–138; TEMP 36.4–37; O2SAT 70–100; BMI 21.2
[2020-12-14] MEDS: ipratropium-albuterol 3 mL Neb INHALATION (16:23)
--- NOTE | 2020-12-14 16:27 | XRR_ITS ---
PROCEDURE INFORMATION: Exam: XR Chest Exam date and time: 12/14/2020 4:49 PM Age: 85 years old Clinical indication: Shortness of breath; Additional info: SOB TECHNIQUE: Imaging protocol: XR of the chest Views: 1 view. Total images: 1 COMPARISON: 1. CT chest w con* [id number] 02/23/2020 10:39 AM 2. ID Chest 1 [place] [id number] 07/24/2019 7:39:27 AM FINDINGS: Tubes, catheters and devices: Ventriculoperitoneal shunt. Lungs: COPD/chronic bronchitis/centrilobular emphysema stable. Stable parenchymal scar atelectasis and or tumoral scar right lung. Stable scar atelectasis left mid lung. Calcified granulomas of antecedent disease. Pleural spaces: No pleural effusion. No pneumothorax. Heart/Mediastinum: Cardiac structures and configuration with microcardia and arteriosclerosis. Tortuous thoracic aorta which can be seen in hypertensive cardiovascular disease. Bones/joints: Unremarkable for age. Soft tissues: Bilateral breast implants. XR/XR chest 1V portable [id number] IMPRESSION: No significant interval change cardiopulmonary status radiographically since 07/24/2019.
[2020-12-14 16:46] LABS: ABG PCO2 39.9 mmHg (35-45); ABG PH Result 7.43 (7.35-7.45); Arterial Blood Gas Hematocrit 44.9 % (37-47); Base Excess ABG 1.8 mmol/L (-2.0-2.0); Blood Gas Operator Identificat AMH; Blood Gas Sample Site Brachial, right; Blood Gas Sample Type Arterial; HCO3 ABG 26.3 mmol/L (22-26); Oxygen Device BIPAP; PO2 ABG 83.3 mmHg (80.0-100.0)
[2020-12-14 16:53] LABS: Basophils % 0.5 %; Hematocrit 44.1 % (37.0-47.0); Hemoglobin 14.2 g/dL (11.5-15.3); Lymphocytes # 0.3 10^3/uL (0.8-4.8); Lymphocytes % 4.3 %; Mean Corpuscular HGB Conc 32.2 g/dL (30.0-36.0); Mean Corpuscular Hemoglobin 30.9 pg (28.0-34.0); Mean Corpuscular Volume 96.1 fL (81-99); Mean Platelet Volume 9.9 fL (7.4-10.4); Monocytes # 0.2 10^3/uL (0.2-0.9); Monocytes % 3.2 %; Neutrophils # 5.91 10^3/uL (1.8-7.7); Neutrophils % 90.8 %; Nucleated Red Blood Cells % 0 %; Platelet Count 296 10^3/cmm (130-400); Red Blood Count 4.59 10^6/uL (4.1-5.3); Red Cell Distribution Width 14.8 % (12.1-15.1); White Blood Count 6.5 10^3/uL (4.0-10.0)
[2020-12-14] MEDS: sodium chloride 0.9% 500 ML 999 ML IV (16:56)
[2020-12-14 17:19] LABS: Albumin Level 3.7 g/dL (3.5-5.2); Alkaline Phosphatase 79 IU/L (35-105); Blood Urea Nitrogen 24 mg/dL (8-23); C Reactive Protein 21.8 mg/L (0.0-4.9); Calcium 10.7 mg/dL (8.5-10.5); Carbon Dioxide 26 mmol/L (22-29); Chloride 94 mmol/L (98-107); Globulin 3.6 g/dL (1.3-4.6); Glucose 288 mg/dL (65-115); Osmolality Calculated 297 mOsm/kg (285-295); Sodium 136 mmol/L (136-145); Total Bilirubin 0.6 mg/dL (0.15-1.2); Total Protein 7.3 g/dL (6.6-8.7)
[2020-12-14 17:21] LABS: Ammonia 16 umol/L (11-51)
--- NOTE | 2020-12-14 17:22 | ECG_ITS ---
[facility] Test Date: 2020-12-14 Pat Name: Sendy Foley Department: Room: Gender: Female Mill Machinist: : 1935 Requested By: Zachary Gracia I Order Number: [id number] Reading MD: SHANNON PETERSEN Measurements Intervals [place] Rate: 120 P: 81 WV: 193 QRS: -80 QRSD: 70 T: 83 QT: 326 QTc: 462 Interpretive Statements SINUS TACHYCARDIA WITH FREQUENT VENTRICULAR PREMATURE COMPLEXES WITH FREQUENT SUPRAVENTRICULAR PREMATURE COMPLEXES LEFT AXIS DEVIATION [QRS AXIS < -30] PATTERN CONSISTENT WITH PULMONARY DISEASE POSSIBLE RIGHT VENTRICULAR CONDUCTION DELAY [RSR (QR) IN V1/V2] Compared to ECG 09/21/2020 12:13:30 Ventricular premature complex(es) now present Left-axis deviation now present Sinus rhythm no longer present Left anterior fascicular block no longer present Electronically Signed On 12-14-2020 18:46:39 CLAM SORTER by SHANNON PETERSEN [id number]
[2020-12-14 17:26] LABS: Alanine Aminotransferase 35 U/L (0-33); Anion Gap 21.2 (5-19); Aspartate Amino Transferase 42 U/L (0-32); Potassium 5.2 mmol/L (3.5-5.1)
--- NOTE | 2020-12-14 17:52 | CTR_ITS ---
PROCEDURE INFORMATION: Exam: CT Head Without Contrast Exam date and time: 12/14/2020 6:25 PM Age: 85 years old Clinical indication: Altered mental status/memory loss; Additional info: AMS TECHNIQUE: Imaging protocol: Computed tomography of the head without contrast. Total images: 203 Radiation optimization: All CT scans at this facility use at least one of these dose optimization techniques: automated exposure control; mA and/or kV adjustment per patient size (includes targeted exams where dose is matched to clinical indication); or iterative reconstruction. COMPARISON: 1. CT head wo con* [id number] 11/28/2020 6:[address] head wo con* [id number] 09/21/2020 12:20:16 PM 3. MR head wo/w con [id number] 09/21/2020 2:32:32 PM RADIATION DOSE METRICS: Total DLP (mGy-cm): 822.52 FINDINGS: Brain: Again note of right parietal gyral hyperdensity that remains stable since prior studies apparently attributed to the site of a prior subarachnoid hemorrhagic event. No evidence of active or acute intracranial pathologic process, hemorrhage, or trauma. Moderate small vessel ischemic disease with senile periventricular leukomalacia. Cerebral and cerebellar atrophy with ventricular dilatation greater than that anticipated for patient's chronological age. No mass effect. No midline shift. No generalized edema. Cerebral ventricles: Interval ventriculoperitoneal shunt placement tip at the level of the 3rd ventricle. Ventriculomegaly greater than the degree of atrophy present raising the suspicion for normal pressure hydrocephalus particularly in light of thinning of the corpus callosum. Bones/joints: Unremarkable. No acute fracture. Paranasal sinuses: Visualized sinuses are unremarkable. No fluid levels. Mastoid air cells: Visualized mastoid air cells are well aerated. Soft tissues: Right parietal skin ernestine and osteotomy defect. CT/CT head wo con* [id number] IMPRESSION: 1. No evidence of active or acute intracranial pathologic process, hemorrhage, or trauma. 2. Interval ventriculoperitoneal shunt placement tip at the level of the 3rd ventricle. 3. Ventriculomegaly greater than the degree of atrophy present raising the suspicion for normal pressure hydrocephalus particularly in light of thinning of the corpus callosum. 4. Again note of right parietal gyral hyperdensity that remains stable since prior studies apparently attributed to the site of a prior subarachnoid hemorrhagic event. Radiation Dose CTDIVOL = (mGy): DLP = 822.52 (mGy-cm)
[2020-12-14] MEDS: piperacillin-tazobactam 3.375 GM in sodium chloride 0.9% (plus) 50 ML IV (17:56)
--- NOTE | 2020-12-14 18:35 | CTR_ITS ---
PROCEDURE INFORMATION: Exam: CT Chest Without Contrast; Diagnostic Exam date and time: 12/14/2020 7:03 PM Age: 85 years old Clinical indication: Abdominal pain; Chest pain; Type not specified; Additional info: Sepsis TECHNIQUE: Imaging protocol: Diagnostic computed tomography of the chest without contrast. Total images: 512 Radiation optimization: All CT scans at this facility use at least one of these dose optimization techniques: automated exposure control; mA and/or kV adjustment per patient size (includes targeted exams where dose is matched to clinical indication); or iterative reconstruction. COMPARISON: 1. CT abdomen pelvis w con* [id number] 08/16/2020 12:[address] chest w con* [id number] 02/23/2020 10:39:19 AM RADIATION DOSE METRICS: Total DLP (mGy-cm): 1154.21 FINDINGS: Tubes, catheters and devices: Ventriculoperitoneal shunt. Lungs: No appreciable significant interval change in the appearance of the right perihilar consolidated alveolar airspace disease of known lung carcinoma and/or tumor atelectatic scar and or indolent tumor. No appreciable significant interval change in volume of the alveolar airspace disease. Centrilobular emphysema with COPD/chronic bronchitis. Calcified granuloma of antecedent disease right lower lobe. No visible hematogenous metastasis. Minimal scar atelectasis base of the anterior segment left upper lobe. No findings raising suspicion for active pneumonitis/pneumonia. Pleural spaces: Unremarkable. No pneumothorax. No pleural effusion. Heart: Microcardia. No visible pericardial effusion. No visible significant coronary artery disease. Mediastinal space: Ectatic esophagus with potential achalasia. Aorta: The thoracic aorta is nonaneurysmal. Moderate arterial sclerotic disease. Tortuous thoracic aorta which can be seen in hypertensive cardiovascular disease. Lymph nodes: No visible new mediastinal or hilar lymphadenopathy. Bones/joints: No visible active or acute osseous pathology. No visible osteolytic or osteoblastic destructive process. Old compression deformity of mild severity T7. Osteopenia/osteoporosis. Soft tissues: Bilateral breast implants. Other findings: Motion artifact. Cachexia. IMPRESSION: 1. Currently no visible acute cardiopulmonary/cardiothoracic pathologic process. 2. No appreciable significant interval change in the appearance of the right perihilar consolidated alveolar airspace disease of known lung carcinoma and/or tumor atelectatic scar and or indolent tumor. 3. Centrilobular emphysema with COPD/chronic bronchitis. 4. Other nonurgent, nonemergent, chronic, and age related findings as detailed in text above. PROCEDURE INFORMATION: Exam: CT Abdomen And Pelvis Without Contrast Exam date and time: 12/14/2020 7:03 PM Age: 85 years old Clinical indication: Abdominal pain; Chest pain; Type not specified; Additional info: Sepsis TECHNIQUE: Imaging protocol: Computed tomography of the abdomen and pelvis without contrast. Radiation optimization: All CT scans at this facility use at least one of these dose optimization techniques: automated exposure control; mA and/or kV adjustment per patient size (includes targeted exams where dose is matched to clinical indication); or iterative reconstruction. COMPARISON: CT abdomen pelvis w con* [id number] 08/16/2020 12:55 PM RADIATION DOSE METRICS: Total DLP (mGy-cm): 1154.21 FINDINGS: Tubes, catheters and devices: Gastrostomy tube within the gastric lumen. Ventriculoperitoneal shunt. Liver: No visible hepatic mass or cystic structure. Gallbladder and bile ducts: Status post cholecystectomy. Pancreas: Pancreas unremarkable for age. No visible pancreatic ductal ectasia. Spleen: Normal. No splenomegaly. Adrenal glands: Adrenal glands unremarkable. No visible adrenal mass. Kidneys and ureters: Tiny focus of nonobstructing calyceal nephrolithiasis equator right kidney under 2 mm. No hydronephrosis or perinephric fluid bilaterally. No visible nephrolithiasis left kidney. Stomach and bowel: Diverticulosis coli, primarily the sigmoid colon, without current evidence of acute diverticulitis. Concentrated oral contrast within the colon from a previous study with associated artifact. Nonobstructive bowel pattern. No visible adynamic or reactive ileus. Appendix: No evidence of appendicitis. Intraperitoneal space: No visible pneumoperitoneum or intraperitoneal ascites. Vasculature: The abdominal aorta is nonaneurysmal. Moderate arterial sclerotic disease. Lymph nodes: Unremarkable. No enlarged lymph nodes. Urinary bladder: Urinary bladder unremarkable. Reproductive: Status post hysterectomy. Bones/joints: No visible active or acute osseous pathology. Osteopenia/osteoporosis. No visible osteolytic or osteoblastic destructive process. Soft tissues: Anasarca Other findings: Motion artifact. CT/CT chest abd pel wo con IMPRESSION: 1. Currently no visible evidence for acute abdominal or pelvic pathologic process. 2. Tiny focus of nonobstructing calyceal nephrolithiasis right kidney. 3. Diverticulosis coli without visible evidence for acute diverticulitis. 4. Other nonurgent, nonemergent, chronic, and age related findings as detailed in text above. COMMENTS: Consistent with the [employer]'s Incidental Findings Committee white paper (J Am Kilo Radiol 2018): Any incidental renal lesion less than 1 cm or classified as too small to characterize, or any incidental cystic renal lesion characterized as simple-appearing, is likely benign. No follow-up imaging is recommended for these lesions per consensus recommendations based on imaging criteria. Radiation Dose CTDIVOL = (mGy): DLP = 1154.21~1154.21 (mGy-cm)
--- NOTE | 2020-12-14 18:35 | P.HP_ITS ---
Providers/Chief Complaint Admitting Physician: Nitin Mendieta MD Primary Care Provider: Gumaro Alexandra, KAY-C Chief Complaint: SEIZURE / AIRWAY ISSUES History of Present Illness Sendy Foley is a 85 year old female presents to emergency department from [facility] where she just was discharged from [facility] after she had craniotomy for subarachnoid bleeding. She was doing relatively okay with physical therapy prior to this event and had difficulty standing up and had significant difficulty with swallowing which neurosurgeon at [facility] in [place] felt that her function will not be regained and therefore she had feeding tube placed. Her granddaughter at bedside reports that last time patient was able to speak was on as family noted that her mental status was gradually declining ever since she was put on antiseizure medication. In ER there was a concern for aspiration pneumonia as patient was extremely hypoxic requiring BiPAP support. Patient's CODE STATUS is DNR/DNI. I have discussed with patient's daughter Tammie over the phone who provided patient's history. Tammie does not want any aggressive evaluation or intervention and wants to make sure that patient is allowed to peacefully if she is not doing well but is okay to try medical treatment and see if we can improve her condition. She had lung cancer treated with immunotherapy and radiation several years ago and appears to developed a new spot now which was not fully been evaluated yet. During my evaluation in ED patient does not communicate. She does not follow commands. She appears to be tracking with her eyes at times and moves her extre mities spontaneously. She does withdraw to pain and was grimacing when IV line being placed by RN. Review of Systems Narrative: Unable to obtain due to patient's mental status. Medications/Allergies Home Medications Medication Instructions Recorded Confirmed Last Taken Type lorazepam 1 mg tablet 1 mg PO TID PRN 12/27/19 12/14/20 09/20/20 History levothyroxine 100 mcg PO DAILY@09/21/20 12/14/20 09/21/20 History levetiracetam 500 mg tablet 500 mg PO Q12H #60 tab 10/24/20 12/14/20 12/14/20 08:00 Rx Ventolin HFA 2 puff INHALATION Q6H PRN 12/14/20 12/14/20 Unknown History potassium bicarb-citric acid 20 meq PO BID@08,20 12/14/20 12/14/20 12/14/20 08:00 History prednisolone 5 mg PO DAILY@08 12/14/20 12/14/20 12/14/20 08:00 History Allergies Allergy/AdvReac Type Severity Reaction Status Date / Time gabapentin Allergy High blood Verified 12/14/20 16:37 preure levofloxacin [From Levaquin] Allergy Rash Verified 12/14/20 16:37 morphine Allergy Unknown Verified 12/14/20 16:37 PFSH Acute PFSH: Medical History (Updated 12/14/20 @ 19:09 by Nitin Mendieta MD) Adult hypothyroidism Brown recluse spider bite COPD (chronic obstructive pulmonary disease) Enrolled in chronic care management History of malignant neoplasm of lung 2018 chemo and radiation Lung cancer Mixed hyperlipidemia Neuropathy Oropharyngeal dysphagia Seasonal allergic rhinitis due to pollen Subarachnoid hemorrhage Surgical History H/O breast augmentation History of appendectomy History of cataract surgery both one in December and one in January History of cholecystectomy History of hysterectomy Family History Mother Hypothyroidism Father Hypothyroidism Other Alzheimer disease COPD exacerbation Social History Smoking and tobacco status: former smoker Second hand smoke exposure: No Smoking risk assessment/counseling performed?: No Alcohol intake: never Desire information about alcohol rehabilitation?: No Counseling given: No Desire information about substance/drug rehabilitation?: No Counseling given: No Adopted: No Caregiver/support person: No Lives independently: Yes Household members: spouse Housing: House Marital status: service: No Current occupational status: retired History of recent travel: No Current gender identity: Female Vitals/I&O/Wt Last Vital Signs Temp 97.5 F L 12/14/20 15:52 Pulse 130 H 12/14/20 18:08 Resp 16 12/14/20 17:24 BP 103/62 12/14/20 17:24 Pulse Ox 97 12/14/20 18:08 12/14/20 12/14/20 12/14/20 06:59 14:59 22:59 Intake Total 500 / 500 Balance 500 / 500 Weight last 48 hrs Weight 54.431 kg Physical Exam Narrative: EXAM NARRATIVE: Exam is limited due to patient's mental status. Patient is lethargic and does not communicate. Oral cavity appears to be dry, she is on BiPAP and does not appear to be in significant distress. Eyes appear symmetric and conjugate. Neck is supple. No cervical lymphadenopathy appreciated. Lungs with coarse breath sounds. Heart is regular. Abdomen is soft does not appear to be tender. Feeding tube in the upper abdomen noted. Bowel sounds hypoactive. Lower extremities show no edema. Was unable to evaluate back. Skin without lesions. Was unable to evaluate incision site as patient wears BiPAP. Does not appear to have focal neurological findings on gross examination. Face appears to be symmetric. Data : 12/14/20 16:38 12/14/20 16:38 Micro: Microbiology 12/14/20 16:38 Blood Culture - Preliminary Blood SPECIMEN COLLECTED A&P Assessment and plan (1) Acute respiratory failure with hypoxia: Concern for aspiration pneumonia/pneumonitis. PE considered but unfortunately we will not be able to anticoagulate patient given her recent surgery Status: Acute (2) Toxic metabolic encephalopathy: This could be related to aspiration and/or episode of seizure. Currently she does not appear to be seizing on exam Status: Acute (3) COPD (chronic obstructive pulmonary disease): Not in exacerbation Status: Chronic (4) Oropharyngeal dysphagia: Post recent stroke, status post feeding tube placement Status: Acute (5) History of malignant neoplasm of lung: It appears that patient recently developed new spots concerning for primary or secondary malignancy Status: Chronic (6) Subarachnoid hemorrhage: Status post recent craniotomy prior to admission. Status: Acute (7) Hypothyroidism: Status: Acute Additional A&P Information PLAN: We will admit patient to ICU for at least 1 day given significant oxygen requirement. We will go ahead and obtain head CT, chest abdomen pelvis for further evaluatio n. We will start patient on Zosyn for now due to highly suspected aspiration pneumonia. Postobstructive and/or aspiration pneumonia is a possibility. Aspiration precautions. We will gently hydrate with D5 NS Hold Ativan and Keppra for now. Would like to see if patient's mental status will improve. PT/OT/ST. Attestations Medical Necessity Statement*: Patient with hypoxic respiratory failure requires close ICU monitoring and treatment. I expect patient will require more than 2 midnights. Time Spent in Patient Care: Greater than 35 minutes (>than 50% of time spent in counselling and/or direct pt care on unit) . Critical Care Time: Critical Care Time (min): 60 Coding Level of Care Code Acute Cleaning Custodian for Chg Fwd Diagnoses Acute respiratory failure with hypoxia J96.01 Toxic metabolic encephalopathy G92 COPD (chronic obstructive pulmonary disease) J44.9 Oropharyngeal dysphagia R13.12 History of malignant neoplasm of lung Z85.118 Subarachnoid hemorrhage I60.9 Hypothyroidism E03.9
--- NOTE | 2020-12-14 18:54 | PC.NURSE ---
Update from granddaughter Granddaughter stated [facility] as previously instructed, SNF staff attempted to refuse to let her visit as assigned visiting hours were supposedly changed to 1030 without notifying family. Granddaughter reported she found patient at SNF laying flat in the bed with foam coming from her mouth and altered mental status.
[2020-12-14] MEDS: vancomycin 750 MG in sodium chloride 0.9% 250 ML 250 MG IV (20:28)
[2020-12-14] MEDS: sodium chloride 0.9% 1,000 ML 999 ML IV (20:37)
[2020-12-14] MEDS: famotidine 20 mg/2 mL INJ IVP (20:37)
[2020-12-14] MEDS: lactated ringers 1,000 ML 50 ML IV (20:58)
--- NOTE | 2020-12-14 22:04 | ED_ITS ---
HPI - SOB/Dyspnea General: Chief Complaint: Shortness of Breath/Dyspnea Stated Complaint: SEIZURE / AIRWAY ISSUES Time Seen by Provider: 12/14/20 15:57 Source: family (Daughter over the phone and granddaughter.) and EMS Mode of arrival: EMS Limitations: other (she is aphasic) History of Present Illness: HPI Narrative: This is an 85-year-old unfortunate female who was discharged from [facility] in [place] yesterday following management for subarachnoid hemorrhage. During that time she had a BEHAVIORAL HEALTH CARE MANAGER shunt placed. She also had a PEG tube placed during her hospital stay due to failing a modified barium swallow. Her granddaughter states she saw her 2 days ago and she appeared stable while in the hospital. She got to the senior living yesterday night. When her granddaug hter went to see her today, the patient was lying flat on her back and she said she noticed that she was foaming at the mouth and appeared to be in respiratory distress. Staff will call the attention of the senior living staff and they called for an ambulance who brought her in here. The ambulance notes is that she was severely hypoxic and placed on a nonrebreather at 15 L/min. The patient is in respiratory distress on arrival and is also aphasic. MD elicited complaint: shortness of breath Pertinent past history: aspiration Context: recent illness Timing: constant Severity: severe Relieving factors: oxygen Review of Systems General: Reports: ROS unobtainable due to medical condition PFS ED PFSH: Medical History Adult hypothyroidism Brown recluse spider bite COPD (chronic obstructive pulmonary disease) Enrolled in chronic care management History of malignant neoplasm of lung 2018 chemo and radiation Lung cancer Mixed hyperlipidemia Neuropathy Oropharyngeal dysphagia Seasonal allergic rhinitis due to pollen Subarachnoid hemorrhage Surgical History H/O breast augmentation History of appendectomy History of cataract surgery both one in December and one in January History of cholecystectomy History of hysterectomy Family History Mother Hypothyroidism Father Hypothyroidism Other Alzheimer disease COPD exacerbation Social History Smoking and tobacco status: former smoker Second hand smoke exposure: No Smoking risk assessment/counseling performed?: No Alcohol intake: never Desire information about alcohol rehabilitation?: No Counseling given: No Desire information about substance/drug rehabilitation?: No Counseling given: No Adopted: No Caregiver/support person: No Lives independently: Yes Household members: spouse Housing: House Marital status: service: No Current occupational status: retired History of recent travel: No Current gender identity: Female Female Reproductive History: Date of last menstrual period: 12/14/20 Physical Exam Const: COMMON NORMALS: alert GENERAL APPEARANCE: in distress (respiratory) and ill appearing Resp: EFFORT & INSPECTION: Yes tachypneic, Yes respiratory distress and Yes uses accessory muscles AUSCULTATION: rales bilateral and diffuse and diminished lung sounds bilateral and diffuse Cardio: COMMON NORMALS: regular rhythm, S1 normal heart sound present, S2 nor mal heart sound present and No murmurs present (Cardio) RATE: tachycardic RHYTHM: regular rhythm HEART SOUNDS: S1 normal heart sound present and S2 normal heart sound present GI: COMMON NORMALS: Soft to palpation and non-tender INSPECTION: Yes GI tube present (left upper quadrant) PALPATION: Yes Soft to palpation Neuro: SENSORIUM/ORIENTATION: Yes alert SPEECH: Total aphasia Course Reevaluation(s): Reevaluation #1: I spoke to the patient's daughter Breanne who lives in [facility] and her granddaughter who is present at the bedside about her CODE STATUS. They both stated that the patient has no living will or advanced directive. She has no designated power of staff attorney but that she had expressed her wishes to be a DNR/DNI to them. The patient will therefore be a DNR. Time: 16:30 Consultations: Consultation #1: Discussed the patient with Dr. Mendieta, hospitalist and he kindly accepted patient to his service. Time: 17:53 Vital Signs: Vital signs: Vital Signs Temperature 98.6 F 12/14/20 20:00 Pulse Rate 118 H 12/14/20 22:17 Respiratory Rate 28 H 12/14/20 22:00 Blood Pressure 124/77 12/14/20 22:00 Pulse Oximetry 95 12/14/20 22:17 MDM - SOB/Dyspnea MDM Narrative: Medical decision making narrative: 85-year-old female patient who had a recent subarachnoid hemorrhage with hydrocephalus and required a BEHAVIORAL HEALTH CARE MANAGER shunt. She was discharged from [facility] in [place] yesterday to a senior living for rehabilitation. During her hospitalization she had a PEG tube placed for feeding. Today the patient presented to the emergency department in respiratory distress on from her lung examination I believe she may have aspirated. Her granddaughter found her laying flat on her back in a senior living and I believe that she may have aspirated. She arrived in respiratory distress and needed to be placed on a BiPAP for oxygenation. She is admitted to the ICU for further evaluation and management. She was given a dose of vancomycin and Zosyn in the emergency department. Medical Records: Attestation: I reviewed the patient's medical records. Lab Data: Attestation: I reviewed the patient's lab results. Labs: Lab Results 12/14/20 12/14/20 12/14/20 Range/Units 16:35 16:38 16:38 WBC 6.5 (4.0-10.0) 10^3/ uL RBC 4.59 (4.1-5.3) 10^6/u L Hgb 14.2 (11.5-15.3) g/dL Hct 44.1 (37.0-47.0) % MCV 96.1 (81-99) fL MCH 30.9 (28.0-34.0) pg MCHC 32.2 (30.0-36.0) g/dL RDW 14.8 (12.1-15.1) % Plt Count 296 (130-400) 10^3/c mm MPV 9.9 (7.4-10.4) fL Neut % (Auto) 90.8 % Lymph % (Auto) 4.3 % Mobile % (Auto) 3.2 % Eos % (Auto) 0.0 % Baso % (Auto) 0.5 % Neut # (Auto) 5.91 (1.8-7.7) 10^3/u L Lymph # (Auto) 0.3 L (0.8-4.8) 10^3/u L Mobile # (Auto) 0.2 (0.2-0.9) 10^3/u L Eos # (Auto) 0.0 (0.0-0.8) 10^3/u L Baso # (Auto) 0.0 (0.0-0.1) 10^3/u L Nucleated RBC % (a uto) 0 % Nucleated RBCs # 0.0 /100WBC Specimen Type Arterial Sample Site Brachial, right ABG pH 7.43 (7.35-7.45) ABG pCO2 39.9 (35-45) mmHg ABG pO2 83.3 (80.0-100.0) mmH g ABG HCO3 26.3 H (22-26) mmol/L ABG Base Excess 1.8 (-2.0-2.0) mmol/ L Josesito Test N/a Hematocrit 44.9 (37-47) % O2 Delivery Device Bipap FiO2 30.0 % Machinist Helper Marine ID Amh Sodium 136 (136-145) mmol/L Potassium 5.2 H (3.5-5.1) mmol/L Chloride 94 L (98-107) mmol/L Carbon Dioxide 26 (22-29) mmol/L Anion Gap 21.2 H (5-19) BUN 24 H (8-23) mg/dL Creatinine 0.9 (0.5-0.9) mg/dL GFR Calculation Not Reportable Glucose 288 H (65-115) mg/dL Calculated Osmolal ity 297 H (285-295) mOsm/k g Lactate (0.5-2.2) mmol/L Calcium 10.7 H (8.5-10.5) mg/dL Total Bilirubin 0.6 (0.15-1.2) mg/dL AST 42 H (0-32) U/L ALT 35 H (0-33) U/L Alkaline Phosphata se 79 (35-105) IU/L Ammonia (11-51) umol/L C-Reactive Protein 21.8 H (0.0-4.9) mg/L Total Protein 7.3 (6.6-8.7) g/dL Albumin 3.7 (3.5-5.2) g/dL Globulin 3.6 (1.3-4.6) g/dL 12/14/20 12/14/20 Range/Units 16:38 16:38 WBC (4.0-10.0) 10^3/ uL RBC (4.1-5.3) 10^6/u L Hgb (11.5-15.3) g/dL Hct (37.0-47.0) % MCV (81-99) fL MCH (28.0-34.0) pg MCHC (30.0-36.0) g/dL RDW (12.1-15.1) % Plt Count (130-400) 10^3/c mm MPV (7.4-10.4) fL Neut % (Auto) % Lymph % (Auto) % Mobile % (Auto) % Eos % (Auto) % Baso % (Auto) % Neut # (Auto) (1.8-7.7) 10^3/u L Lymph # (Auto) (0.8-4.8) 10^3/u L Mobile # (Auto) (0.2-0.9) 10^3/u L Eos # (Auto) (0.0-0.8) 10^3/u L Baso # (Auto) (0.0-0.1) 10^3/u L Nucleated RBC % (a uto) % Nucleated RBCs # /100WBC Specimen Type Sample Site ABG pH (7.35-7.45) ABG pCO2 (35-45) mmHg ABG pO2 (80.0-100.0) mmH g ABG HCO3 (22-26) mmol/L ABG Base Excess (-2.0-2.0) mmol/ L Josesito Test Hematocrit (37-47) % O2 Delivery Device FiO2 % Machinist Helper Marine ID Sodium (136-145) mmol/L Potassium (3.5-5.1) mmol/L Chloride (98-107) mmol/L Carbon Dioxide (22-29) mmol/L Anion Gap (5-19) BUN (8-23) mg/dL Creatinine (0.5-0.9) mg/dL GFR Calculation Glucose (65-115) mg/dL Calculated Osmolal ity (285-295) mOsm/k g Lactate 6.0 H* (0.5-2.2) mmol/L Calcium (8.5-10.5) mg/dL Total Bilirubin (0.15-1.2) mg/dL AST (0-32) U/L ALT (0-33) U/L Alkaline Phosphata se (35-105) IU/L Ammonia 16 (11-51) umol/L C-Reactive Protein (0.0-4.9) mg/L Total Protein (6.6-8.7) g/dL Albumin (3.5-5.2) g/dL Globulin (1.3-4.6) g/dL Imaging Data^: CXR: Attestation: I personally reviewed and interpreted this imaging study as follows: Radiologist's impression: [address] [address] XRay Report Signed Patient: Sendy Foley #: [id number] : 7Acct#:[id number] Age/Sex: 85 / FADM Date: 12/14/20 Loc: ERRoom/Bed: Attending Dr: Ordering Provider/Ordering MD: Zachary Gracia MD, [facility] [place] Date of Service: 12/14/20 Procedure(s): XR chest 1V portable [id number] Accession Number(s): [id number] Report Number: [id number] PROCEDURE INFORMATION: Exam: XR Chest Exam date and time: 12/14/2020 4:49 PM Age: 85 years old Clinical indication: Shortness of breath; Additional info: SOB TECHNIQUE: Imaging protocol: XR of the chest Views: 1 view. Total images: 1 COMPARISON: 1. CT chest w con* [id number] 02/23/2020 10:39 AM 2. [place] Chest 1 [place] [id number] 07/24/2019 7:39:27 AM FINDINGS: Tubes, catheters and devices: Ventriculoperitoneal shunt. Lungs: COPD/chronic bronchitis/centrilobular emphysema stable. Stable parenchymal scar atelectasis and or tumoral scar right lung. Stable scar atelectasis left mid lung. Calcified granulomas of antecedent disease. Pleural spaces: No pleural effusion. No pneumothorax. Heart/Mediastinum: Cardiac structures and configuration with microcardia and arteriosclerosis. Tortuous thoracic aorta which can be seen in hypertensive cardiovascular disease. Bones/joints: Unremarkable for age. Soft tissues: Bilateral breast implants. XR/XR chest 1V portable [id number] IMPRESSION: No significant interval change cardiopulmonary status radiographically since 07/24/2019. Dictated By:Vikram Churchill Signed By:Angelique Churchill Date/Time:12/14/201732 DD/ 31 CT Chest: Attestation: I personally reviewed and interpreted this imaging study as follows: Radiologist's impression: [address] [address] [address] Scan Report Signed Patient: Sendy Foley #: [id number] : 7Acct#:[id number] Age/Sex: 85 / FADM Date: 12/14/20 Loc: ICURoom/Bed: [place] [address]: Nitin Mendieta MD Ordering Provider/Ordering MD: Zachary Gracia MD, [facility] [place] Date of Service: 12/14/20 Procedure(s): CT chest abd pel wo con Accession Number(s): [id number] Report Number: [id number] PROCEDURE INFORMATION: Exam: CT Chest Without Contrast; Diagnostic Exam date and time: 12/14/2020 7:03 PM Age: 85 years old Clinical indication: Abdominal pain; Chest pain; Type not specified; Additional info: Sepsis TECHNIQUE: Imaging protocol: Diagnostic computed tomography of the chest without contrast. Total images: 512 Radiation optimization: All CT scans at this facility use at least one of these dose optimization techniques: automated exposure control; mA and/or kV adjustment per patient size (includes targeted exams where dose is matched to clinical indication); or iterative reconstruction. COMPARISON: 1. CT abdomen pelvis w con* [id number] 08/16/2020 12:[address] chest w con* [id number] 02/23/2020 10:39:19 AM RADIATION DOSE METRICS: Total DLP (mGy-cm): 1154.21 FINDINGS: Tubes, catheters and devices: Ventriculoperitoneal shunt. Lungs: No appreciable significant interval change in the appearance of the right perihilar consolidated alveolar airspace disease of known lung carcinoma and/or tumor atelectatic scar and or indolent tumor. No appreciable significant interval change in volume of the alveolar airspace disease. Centrilobular emphysema with COPD/chronic bronchitis. Calcified granuloma of antecedent disease right lower lobe. No visible hematogenous metastasis. Minimal scar atelectasis base of the anterior segment left upper lobe. No findings raising suspicion for active pneumonitis/pneumonia. Pleural spaces: Unremarkable. No pneumothorax. No pleural effusion. Heart: Microcardia. No visible pericardial effusion. No visible significant coronary artery disease. Mediastinal space: Ectatic esophagus with potential achalasia. Aorta: The thoracic aorta is nonaneurysmal. Moderate arterial sclerotic disease. Tortuous thoracic aorta which can be seen in hypertensive cardiovascular disease. Lymph nodes: No visible new mediastinal or hilar lymphadenopathy. Bones/joints: No visible active or acute osseous pathology. No visible osteolytic or osteoblastic destructive process. Old compression deformity of mild severity T7. Osteopenia/osteoporosis. Soft tissues: Bilateral breast implants. Other findings: Motion artifact. Cachexia. IMPRESSION: 1. Currently no visible acute cardiopulmonary/cardiothoracic pathologic process. 2. No appreciable significant interval change in the appearance of the right perihilar consolidated alveolar airspace disease of known lung carcinoma and/or tumor atelectatic scar and or indolent tumor. 3. Centrilobular emphysema with COPD/chronic bronchitis. 4. Other nonurgent, nonemergent, chronic, and age related findings as detailed in text above. PROCEDURE INFORMATION: Exam: CT Abdomen And Pelvis Without Contrast Exam date and time: 12/14/2020 7:03 PM Age: 85 years old Clinical indication: Abdominal pain; Chest pain; Type not specified; Additional info: Sepsis TECHNIQUE: Imaging protocol: Computed tomography of the abdomen and pelvis without contrast. Radiation optimization: All CT scans at this facility use at least one of these dose optimization techniques: automated exposure control; mA and/or kV adjustment per patient size (includes targeted exams where dose is matched to clinical indication); or iterative reconstruction. COMPARISON: CT abdomen pelvis w con* [id number] 08/16/2020 12:55 PM RADIATION DOSE METRICS: Total DLP (mGy-cm): 1154.21 FINDINGS: Tubes, catheters and devices: Gastrostomy tube within the gastric lumen. Ventriculoperitoneal shunt. Liver: No visible hepatic mass or cystic structure. Gallbladder and bile ducts: Status post cholecystectomy. Pancreas: Pancreas unremarkable for age. No visible pancreatic ductal ectasia. Spleen: Normal. No splenomegaly. Adrenal glands: Adrenal glands unremarkable. No visible adrenal mass. Kidneys and ureters: Tiny focus of nonobstructing calyceal nephrolithiasis equator right kidney under 2 mm. No hydronephrosis or perinephric fluid bilaterally. No visible nephrolithiasis left kidney. Stomach and bowel: Diverticulosis coli, primarily the sigmoid colon, without current evidence of acute diverticulitis. Concentrated oral contrast within the colon from a previous study with associated artifact. Nonobstructive bowel pattern. No visible adynamic or reactive ileus. Appendix: No evidence of appendicitis. Intraperitoneal space: No visible pneumoperitoneum or intraperitoneal ascites. Vasculature: The abdominal aorta is nonaneurysmal. Moderate arterial sclerotic disease. Lymph nodes: Unremarkable. No enlarged lymph nodes. Urinary bladder: Urinary bladder unremarkable. Reproductive: Status post hysterectomy. Bones/joints: No visible active or acute osseous pathology. Osteopenia/osteoporosis. No visible osteolytic or osteoblastic destructive process. Soft tissues: Anasarca Other findings: Motion artifact. CT/CT chest abd pel wo con IMPRESSION: 1. Currently no visible evidence for acute abdominal or pelvic pathologic process. 2. Tiny focus of nonobstructing calyceal nephrolithiasis right kidney. 3. Diverticulosis coli without visible evidence for acute diverticulitis. 4. Other nonurgent, nonemergent, chronic, and age related findings as detailed in text above. COMMENTS: Consistent with the [employer]'s Incidental Findings Committee white paper (J Am Kilo Radiol 2018): Any incidental renal lesion less than 1 cm or classified as too small to characterize, or any incidental cystic renal lesion characterized as simple-appearing, is likely benign. No follow-up imaging is recommended for these lesions per consensus recommendations based on imaging criteria. Radiation Dose CTDIVOL = (mGy): DLP = 1154.21~1154.21 (mGy-cm) Dictated By:Vikram Churchill Signed By:Angelique Churchill Date/Time:12/14/201946 DD/ 45 CT Head: Attestation: I personally reviewed and interpreted this imaging study as follows: Radiologist's impression: [address] [address] [address] Scan Report Signed Patient: Sendy Foley #: [id number] : 7Acct#:[id number] Age/Sex: 85 / FADM Date: 12/14/20 Loc: ICURoom/Bed: [place] [address]: Nitin Mendieta MD Ordering Provider/Ordering MD: Zachary Gracia MD, [facility] [place] Date of Service: 12/14/20 Procedure(s): CT head wo con* [id number] Accession Number(s): [id number] Report Number: [id number] PROCEDURE INFORMATION: Exam: CT Head Without Contrast Exam date and time: 12/14/2020 6:25 PM Age: 85 years old Clinical indication: Altered mental status/memory loss; Additional info: AMS TECHNIQUE: Imaging protocol: Computed tomography of the head without contrast. Total images: 203 Radiation optimization: All CT scans at this facility use at least one of these dose optimization techniques: automated exposure control; mA and/or kV adjustment per patient size (includes targeted exams where dose is matched to clinical indication); or iterative reconstruction. COMPARISON: 1. CT head wo con* [id number] 11/28/2020 6:[address] head wo con* [id number] 09/21/2020 12:20:16 PM 3. MR head wo/w con [id number] 09/21/2020 2:32:32 PM RADIATION DOSE METRICS: Total DLP (mGy-cm): 822.52 FINDINGS: Brain: Again note of right parietal gyral hyperdensity that remains stable since prior studies apparently attributed to the site of a prior subarachnoid hemorrhagic event. No evidence of active or acute intracranial pathologic process, hemorrhage, or trauma. Moderate small vessel ischemic disease with senile periventricular leukomalacia. Cerebral and cerebellar atrophy with ventricular dilatation greater than that anticipated for patient's chronological age. No mass effect. No midline shift. No generalized edema. Cerebral ventricles: Interval ventriculoperitoneal shunt placement tip at the level of the 3rd ventricle. Ventriculomegaly greater than the degree of atrophy present raising the suspicion for normal pressure hydrocephalus particularly in light of thinning of the corpus callosum. Bones/joints: Unremarkable. No acute fracture. Paranasal sinuses: Visualized sinuses are unremarkable. No fluid levels. Mastoid air cells: Visualized mastoid air cells are well aerated. Soft tissues: Right parietal skin ernestine and osteotomy defect. CT/CT head wo con* [id number] IMPRESSION: 1. No evidence of active or acute intracranial pathologic process, hemorrhage, or trauma. 2. Interval ventriculoperitoneal shunt placement tip at the level of the 3rd ventricle. 3. Ventriculomegaly greater than the degree of atrophy present raising the suspicion for normal pressure hydrocephalus particularly in light of thinning of the corpus callosum. 4. Again note of right parietal gyral hyperdensity that remains stable since prior studies apparently attributed to the site of a prior subarachnoid hemorrhagic event. Radiation Dose CTDIVOL = (mGy): DLP = 822.52 (mGy-cm) Dictated By:Vikram Churchill Signed By:Vikram ChurchillSigntigre Date/Time:12/14/201929 DD/ 28 EKG Data^: EKG 1: Attestation: I personally reviewed and interpreted this EKG as follows: EKG Interpretation Date: 12/14/20 EKG interpretation time: 16:03 Prior EKG tracings: not available for review Interpretation: Sinus tachycardia with frequent ventricular premature complexes. Heart rate 120 bpm Left axis deviation. No ST changes. Critical Care Time Critical Care Time: Critical Care Time: Yes Total Critical Care Time: 60 Attestation: This case had a high probability of a clinically significant, sudden, or life threatening deterioration of this patient's condition which required my full and direct attention, intervention and personal management. Discharge Plan Discharge Patient Disposition: Admitted As Inpatient Admit Provider: Nitin Mendieta Clinical Impression: Acute respiratory failure with hypoxia, History of subdural hemorrhage Aspiration pneumonia Qualifiers: Aspiration pneumonia type: unspecified Laterality: unspecified laterality Lung location: unspecified part of lung Qualified Code(s): J69.0 - Pneumonitis due to inhalation of food and vomit Condition: Stable Coding Level of Care Code ED Spray Painting Machine Operator for [facility] Fwd Exam Detailed
[2020-12-15] VITALS (74 sets, daily range): BP systolic 88–174; BP diastolic 62–142; PULSE 89–124; RESP 15–29; TEMP 36.6–37.8; O2SAT 83–100
[2020-12-15 01:09] LABS: Add Urine Microscopic? YES; Bilirubin Urine Neg (Negative); Blood Urine 3+ (Negative); Glucose Urine UA Norm (Normal); Ketones Urine Negative (Negative); Leukocyte Esterase Urine 2+ (Negative); Nitrate Urine Positive (Negative); Protein Urine Trace (Negative); Urine Color Yellow (Yellow); Urobilinogen Urine Norm (Negative); pH Urine 7 (5-7)
[2020-12-15 01:11] LABS: Add Urine Culture? Yes; Bacteria Urine 3+ /hpf; RBC Urine >100 /hpf (0-2); Squamous Epithelial Cell Urine 0-4 /hpf (0-5); WBC Urine TOO NUMEROUS TO CNT /hpf (0-5)
[2020-12-15] MEDS: piperacillin-tazobactam 3.375 GM in sodium chloride 0.9% (plus) 50 ML IV ×3 (03:42→17:41)
[2020-12-15] MEDS: levothyroxine 100 mcg Tablet PO (05:49)
[2020-12-15 05:54] LABS: INR 1.13 (0.8-1.2)
[2020-12-15] MEDS: famotidine 20 mg/2 mL INJ IVP ×2 (06:18→20:06)
[2020-12-15] MEDS: pred sod phos 15 mg/5 mL Soln 30mL Btl 5 MG PO (07:21)
--- NOTE | 2020-12-15 09:08 | PC.NURSE ---
Tube feeding started Osmolite 1.2 maryana started at 10ml/hr. Target 30 ml/hr.
--- NOTE | 2020-12-15 09:34 | P.PN_ITS ---
Subjective Subjective: Interval history: Patient open her eyes on voice but did not respond. She did not follow any commands. She appears in no distress. CT scan showed no acute findings. She had no evidence of aspiration. Morning labs are still pending. Vitals/I&O/Wt Last Vital Signs Temp 97.8 F 12/15/20 06:00 Pulse 100 12/15/20 08:07 Resp 23 H 12/15/20 08:00 BP 116/88 12/15/20 08:00 Pulse Ox 97 12/15/20 08:07 12/14/20 12/15/20 12/15/20 22:59 06:59 14:59 Intake Total 1800 / 1800 50 / 50 Output Total 600 / 600 Balance 1800 / 1800 -600 / 1200 50 / 50 Weight last 48 hrs Weight 48.988 kg Weight 48.988 kg Weight 54.431 kg Physical Exam Narrative: EXAM NARRATIVE: Patient is not in distress. She is not communicating. Lungs overall clear with minimal scattered coarse sounds. Heart is regular no lower extremity edema. Abdomen is soft and nontender with positive bowel sounds. Urinary Catheter Management^: Smith: Cath Placed During This Visit: yes Reason for Continuing Indwelling Catheter: Accurate Measurement of Urinary Output in Critically Ill Patients Urinary Catheter Date of Insertion: 12/14/20 Urinary Catheter Time of Insertion: 23:40 Data : 12/14/20 16:38 12/14/20 16:38 Micro: Microbiology 12/14/20 18:30 Blood Culture - Preliminary Blood SPECIMEN COLLECTED 12/14/20 16:38 Blood Culture - Preliminary Blood SPECIMEN COLLECTED A&P Assessment and plan (1) Acute respiratory failure with hypoxia: Concern for aspiration pneumonia/pneumonitis. PE considered but unfortunately we will not be able to anticoagulate patient given her recent surgery Status: Acute (2) Toxic metabolic encephalopathy: Episode of seizure definitely considered as well as medication induced including sedative effect of Ativan and Keppra Status: Acute (3) COPD (chronic obstructive pulmonary disease): Not in exacerbation Status: Chronic (4) Oropharyngeal dysphagia: Post recent stroke, status post feeding tube placement Status: Acute (5) History of malignant neoplasm of lung: It appears that patient recently developed new spots concerning for primary or secondary malignancy Status: Chronic (6) Subarachnoid hemorrhage: Status post recent craniotomy prior to admission. Status: Acute (7) Hypothyroidism: Status: Acute Additional A&P Information PLAN: Continue holding Keppra and monitor. Start patient on tube feeds with aspiration precautions. Continue with PT/OT/ST. We will keep patient in ICU for 1 more day and consider transferring tomorrow. Attestations Medical Necessity Statement*: Patient was altered mental status with toxic metabolic encephalopathy and concern for possible seizure requires close ICU monitoring and treatment. Time Spent in Patient Care: 16 - 35 minutes Coding Level of Care Code Acute [employer] English Teacher for [facility] Fwd Diagnoses Acute respiratory failure with hypoxia J96.01 Toxic metabolic encephalopathy G92 COPD (chronic obstructive pulmonary disease) J44.9 Oropharyngeal dysphagia R13.12 History of malignant neoplasm of lung Z85.118 Subarachnoid hemorrhage I60.9 Hypothyroidism E03.9
[2020-12-15 09:47] LABS: Basophils % 0.6 %; Eosinophils % 0.2 %; Hematocrit 37.1 % (37.0-47.0); Hemoglobin 11.7 g/dL (11.5-15.3); Lymphocytes # 0.4 10^3/uL (0.8-4.8); Lymphocytes % 5.8 %; Mean Corpuscular HGB Conc 31.5 g/dL (30.0-36.0); Mean Corpuscular Hemoglobin 30.4 pg (28.0-34.0); Mean Corpuscular Volume 96.4 fL (81-99); Mean Platelet Volume 9.6 fL (7.4-10.4); Monocytes # 0.3 10^3/uL (0.2-0.9); Monocytes % 4.2 %; Neutrophils # 5.47 10^3/uL (1.8-7.7); Neutrophils % 88.4 %; Nucleated Red Blood Cells % 0 %; Platelet Count 216 10^3/cmm (130-400); Red Blood Count 3.85 10^6/uL (4.1-5.3); Red Cell Distribution Width 14.9 % (12.1-15.1); White Blood Count 6.2 10^3/uL (4.0-10.0)
[2020-12-15 11:02] LABS: Alanine Aminotransferase 29 U/L (0-33); Albumin Level 3.1 g/dL (3.5-5.2); Alkaline Phosphatase 64 IU/L (35-105); Aspartate Amino Transferase 29 U/L (0-32); Blood Urea Nitrogen 19 mg/dL (8-23); Calcium 9.1 mg/dL (8.5-10.5); Carbon Dioxide 29 mmol/L (22-29); Chloride 105 mmol/L (98-107); Globulin 2.7 g/dL (1.3-4.6); Glucose 91 mg/dL (65-115); Osmolality Calculated 296 mOsm/kg (285-295); Sodium 142 mmol/L (136-145); Total Bilirubin 0.5 mg/dL (0.15-1.2); Total Protein 5.8 g/dL (6.6-8.7)
[2020-12-15 11:10] LABS: Anion Gap 11.8 (5-19); Potassium 3.8 mmol/L (3.5-5.1)
[2020-12-15] MEDS: lactated ringers 1,000 ML 50 ML IV (17:41)
[2020-12-16] VITALS (17 sets, daily range): BP systolic 104–142; BP diastolic 71–96; PULSE 92–124; RESP 15–25; TEMP 36.6–37; O2SAT 91–100
[2020-12-16] MEDS: piperacillin-tazobactam 3.375 GM in sodium chloride 0.9% (plus) 50 ML IV (02:26)
[2020-12-16 05:01] LABS: Alanine Aminotransferase 32 U/L (0-33); Albumin Level 3.1 g/dL (3.5-5.2); Alkaline Phosphatase 69 IU/L (35-105); Anion Gap 12.2 (5-19); Aspartate Amino Transferase 28 U/L (0-32); Blood Urea Nitrogen 13 mg/dL (8-23); Calcium 8.8 mg/dL (8.5-10.5); Carbon Dioxide 30 mmol/L (22-29); Chloride 101 mmol/L (98-107); Globulin 2.8 g/dL (1.3-4.6); Glucose 127 mg/dL (65-115); Osmolality Calculated 292 mOsm/kg (285-295); Potassium 3.2 mmol/L (3.5-5.1); Sodium 140 mmol/L (136-145); Total Bilirubin 0.5 mg/dL (0.15-1.2); Total Protein 5.9 g/dL (6.6-8.7)
[2020-12-16] MEDS: levothyroxine 100 mcg Tablet PO (05:32)
[2020-12-16] MEDS: famotidine 20 mg/2 mL INJ IVP ×2 (08:34→20:26)
[2020-12-16] MEDS: pred sod phos 15 mg/5 mL Soln 30mL Btl 5 MG PO (08:34)
--- NOTE | 2020-12-16 08:57 | PM.PN ---
Subjective Subjective: Interval history: Patient is doing much better this morning. She is able to answer some short questions but still somewhat lethargic. She has trouble clearing her secretions. She is doing better today with physical therapy. Her urine is growing gram-negative rods. Vitals/I&O/Wt Last Vital Signs Temp 98.6 F 12/16/20 05:57 Pulse 97 12/16/20 06:00 Resp 22 H 12/16/20 06:00 BP 128/80 12/16/20 06:00 Pulse Ox 95 12/16/20 06:00 12/15/20 12/16/20 12/16/20 22:59 06:59 14:59 Intake Total 1113 / 1213 430 / 1643 Output Total 350 / 350 750 / 1100 Balance 763 / 863 -320 / 543 Weight last 48 hrs Weight 48.988 kg Weight 48.988 kg Weight 54.431 kg Physical Exam Narrative: EXAM NARRATIVE: Patient is not in distress. She is communicating minimally lungs overall clear with minimal coarse sounds, appear to be upper airway transmitted sounds. Heart is regular no lower extremity edema. Abdomen is soft and nontender with positive bowel sounds. Urinary Catheter Management^: Smith: Cath Placed During This Visit: yes Reason for Continuing Indwelling Catheter: Accurate Measurement of Urinary Output in Critically Ill Patients Urinary Catheter Date of Insertion: 12/14/20 Urinary Catheter Time of Insertion: 23:40 Data : 12/15/20 09:20 12/16/20 04:00 Micro: Microbiology 12/14/20 23:45 Urine Culture - Preliminary Urine Catheterized Gram Negative Rods 12/14/20 18:30 Blood Culture - Preliminary Blood NEGATIVE TO DATE 12/14/20 16:38 Blood Culture - Preliminary Blood NEGATIVE TO DATE A&P Assessment and plan (1) Acute respiratory failure with hypoxia: Pneumonia ruled out. Status: Acute (2) Toxic metabolic encephalopathy: Most likely related to UTI. Status: Acute (3) COPD (chronic obstructive pulmonary disease): Not in exacerbation Status: Chronic (4) Oropharyngeal dysphagia: Post recent stroke, status post feeding tube placement Status: Acute (5) History of malignant neoplasm of lung: It appears that patient recently developed new spots concerning for primary or secondary malignancy Status: Chronic (6) Subarachnoid hemorrhage: Status post recent craniotomy prior to admission. Status: Acute (7) Hypothyroidism: Status: Acute (8) Urinary tract infection: Present on admission Status: Acute Additional A&P Information PLAN: Will change antibiotic to ceftriaxone. Awaiting culture identification and susceptibility. We will start patient on low-dose Keppra as she is still at risk for seizure. Continue with physical therapy. We will transfer patient out of ICU. Attestations Medical Necessity Statement*: Patient with altered mental status and UTI requires close inpatient monitoring and treatment until deemed safe for discharge. Coding Level of Care Code Acute [place] for [facility] Fwd Diagnoses Acute respiratory failure with hypoxia J96.01 Toxic metabolic encephalopathy G92 COPD (chronic obstructive pulmonary disease) J44.9 Oropharyngeal dysphagia R13.12 History of malignant neoplasm of lung Z85.118 Subarachnoid hemorrhage I60.9 Hypothyroidism E03.9 Urinary tract infection N39.0
--- NOTE | 2020-12-16 09:42 | PC.CHAP ---
Pastoral Care Encounter/Spiritual Assessment Type of Contact [] Declined customer associate visit [] Patient/Family/Request visit [] Outpatient visit [] Follow-up visit [] Physician referral [] Code/Alert [x] Routine visit [] Staff referral [] Actively dying [] Patient sleeping [] Family support [] [] Out of room [] Palliative care [] [] Receiving care in room [] Pre-surgical visit [] Trauma [] Long length of stay [x] ICU visit [x] Other: patient cant communicate.. Relational/Emotional Strength [] Patient feels connected with others/family/visitors/staff [] Distress [] Loneliness/isolation [] Abandonment Spirituality of Patient [] Person of Aimee [] Attends Yazidi of their Aimee [] Believes in Prayer [] Reads Bible or Anglican materials [] There are Spiritual issues to be addressed Commutator Presser Interventions [x] Prayer [] Active listening [] Non-anxious presence [] Spiritual/emotional support [] Crisis/trauma care [] Spiritual counseling [] Bereavement support [] Provided bereavement packet [] Provided Bible/devotional materials [] Provided toy/stuffed animal, coloring book to patient or family member [] Provided Communion [] Anointing/[place] [] Salvation [x] Completed spiritual assessment [] Other: Impact on Illness or Injury [] Angry [] Fearful [] Anxious [] Often cries [] Exhaustion [] Unable to work [] Unable to attend uatsdin [] Unable to walk/stand [] Unable to read [] Unable to drive [] Unable to eat/drink [] Unable to sleep [] Unable to be with family [] Patient intubated [] Other: Summary Time spent with patient
[2020-12-16 10:02] LABS: Basophils % 0.7 %; Eosinophils % 0.2 %; Hematocrit 35.6 % (37.0-47.0); Hemoglobin 11.4 g/dL (11.5-15.3); Lymphocytes # 0.4 10^3/uL (0.8-4.8); Lymphocytes % 7.1 %; Mean Corpuscular Hemoglobin 30.8 pg (28.0-34.0); Mean Corpuscular Volume 96.2 fL (81-99); Mean Platelet Volume 9.9 fL (7.4-10.4); Monocytes # 0.2 10^3/uL (0.2-0.9); Monocytes % 3.8 %; Neutrophils % 87.5 %; Nucleated Red Blood Cells % 0 %; Platelet Count 248 10^3/cmm (130-400); Red Cell Distribution Width 14.6 % (12.1-15.1); White Blood Count 5.5 10^3/uL (4.0-10.0)
[2020-12-16] MEDS: potassium chloride oral liq 20 mEq/15 mL UDC 40 MEQ PO (10:04)
[2020-12-16] MEDS: cefTRIAXone 1,000 MG in sodium chloride 0.9% (plus) 50 ML 100 MG IV (10:04)
--- NOTE | 2020-12-16 20:00 | PC.RESP ---
Pulmonary Rehab information sent to patient.
[2020-12-17] VITALS (12 sets, daily range): BP systolic 121–144; BP diastolic 68–85; PULSE 85–114; RESP 16–22; TEMP 36.5–37.4; O2SAT 96–99
--- NOTE | 2020-12-17 01:54 | PC.NURSE ---
TUBE FEEDING: OSMOLITE 1.2 EMANI BOTTLE AND TUBING REPLACED AND RESTARTED AT 30 ML/HR. 3ML RESIDUAL WAS FOUND ON ASPIRATION AND RE-ADMINISTERED RESIDUAL . FEEDING RESTARTED AT 0125 ON 12/17/20.
[2020-12-17] MEDS: levothyroxine 100 mcg Tablet PO (05:37)
[2020-12-17 06:04] LABS: Basophils # 0.1 10^3/uL (0.0-0.1); Basophils % 0.8 %; Eosinophils % 0.5 %; Hematocrit 37.1 % (37.0-47.0); Hemoglobin 12.3 g/dL (11.5-15.3); Lymphocytes # 0.5 10^3/uL (0.8-4.8); Lymphocytes % 7.9 %; Mean Corpuscular HGB Conc 33.2 g/dL (30.0-36.0); Mean Corpuscular Hemoglobin 31.2 pg (28.0-34.0); Mean Corpuscular Volume 94.2 fL (81-99); Mean Platelet Volume 9.7 fL (7.4-10.4); Monocytes # 0.3 10^3/uL (0.2-0.9); Monocytes % 4.1 %; Neutrophils # 5.17 10^3/uL (1.8-7.7); Neutrophils % 85.1 %; Nucleated Red Blood Cells % 0 %; Platelet Count 216 10^3/cmm (130-400); Red Blood Count 3.94 10^6/uL (4.1-5.3); Red Cell Distribution Width 14.7 % (12.1-15.1); White Blood Count 6.1 10^3/uL (4.0-10.0)
[2020-12-17 06:18] LABS: Alanine Aminotransferase 27 U/L (0-33); Albumin Level 3.1 g/dL (3.5-5.2); Alkaline Phosphatase 65 IU/L (35-105); Aspartate Amino Transferase 19 U/L (0-32); Blood Urea Nitrogen 9 mg/dL (8-23); Calcium 9.2 mg/dL (8.5-10.5); Carbon Dioxide 29 mmol/L (22-29); Chloride 100 mmol/L (98-107); Globulin 2.5 g/dL (1.3-4.6); Glucose 123 mg/dL (65-115); Osmolality Calculated 286 mOsm/kg (285-295); Sodium 138 mmol/L (136-145); Total Bilirubin 0.5 mg/dL (0.15-1.2); Total Protein 5.6 g/dL (6.6-8.7)
--- NOTE | 2020-12-17 09:03 | PC.SOCIAL ---
IMM Update Pg. 2 of IMM updated and reviewed with patient's family over the phone. Copy left at bedside.
[2020-12-17] MEDS: cefTRIAXone 1,000 MG in sodium chloride 0.9% (plus) 50 ML 100 MG IV (10:31)
[2020-12-17] MEDS: famotidine 20 mg/2 mL INJ IVP ×2 (10:31→22:08)
--- NOTE | 2020-12-17 10:32 | PC.NURSE ---
AT APPROX 0945 RECEIVED VERBAL ORDER FROM DR. LINTON TO HOLD AM DOSE OF KEPPRA.
--- NOTE | 2020-12-17 12:00 | PM.PN ---
Subjective Subjective: Interval history: Patient appears to be further improving. She is alert and was able to minimally communicate. She was answering mostly with yes or no. She did follow commands and wiggle her toes and squeeze my hands bilaterally. Her strength was equal although generally patient appears weak. Her lungs exam much improved. Her urine is growing Pseudomonas aeruginosa. Unfortunately patient is allergic to Levaquin and there is a resistance to cefepime and Zosyn. Carbapenem appears to be the only antibiotic we can use and we have to closely monitor for seizures. Vitals/I&O/Wt Last Vital Signs Temp 98.8 F 12/17/20 11:34 Pulse 109 H 12/17/20 11:34 Resp 16 12/17/20 11:34 BP 134/85 12/17/20 11:34 Pulse Ox 98 12/17/20 11:34 12/16/20 12/17/20 12/17/20 22:59 06:59 14:59 Intake Total 797 / 1877 Output Total 500 / 1050 600 / 1650 Balance 297 / 827 -600 / 227 Weight last 48 hrs Weight 56.109 kg Physical Exam Narrative: EXAM NARRATIVE: Patient is not in distress and alert. Lungs are clear. Heart is regular no lower extremity edema. Abdomen is soft and nontender with positive bowel sounds. PEG tube functioning Urinary Catheter Management^: Smith: Cath Placed During This Visit: yes Reason for Continuing Indwelling Catheter: Required Immobilization for Trauma or Surgery or Anesthesia Urinary Catheter Date of Insertion: 12/14/20 Urinary Catheter Time of Insertion: 23:40 Data : 12/17/20 05:44 12/17/20 05:44 Micro: Microbiology 12/14/20 23:45 Urine Culture - Final Urine Catheterized Pseudomonas aeruginosa 12/14/20 18:30 Blood Culture - Preliminary Blood NEGATIVE TO DATE A&P Assessment and plan (1) Acute respiratory failure with hypoxia: Pneumonia ruled out. Status: Acute (2) Toxic metabolic encephalopathy: Most likely related to UTI. Status: Acute (3) COPD (chronic obstructive pulmonary disease): Not in exacerbation Status: Chronic (4) Oropharyngeal dysphagia: Post recent stroke, status post feeding tube placement Status: Acute (5) History of malignant neoplasm of lung: It appears that patient recently developed new spots concerning for primary or secondary malignancy Status: Chronic (6) Subarachnoid hemorrhage: Status post recent craniotomy prior to admission. Status: Acute (7) Hypothyroidism: Status: Acute (8) Urinary tract infection: Present on admission Status: Acute Additional A&P Information PLAN: Switch antibiotic to Primaxin and closely monitor for seizures. Since Primaxin can lower seizure threshold I will increase Keppra to 500 twice daily and closely monitor Attestations Medical Necessity Statement*: Patient with UTI and altered mental status and overall significant comorbidities requires close inpatient monitoring and treatment until deemed safe for discharge. Coding Level of Care Code Acute Gas Inspector for [facility] Fwd Diagnoses Acute respiratory failure with hypoxia J96.01 Toxic metabolic encephalopathy G92 COPD (chronic obstructive pulmonary disease) J44.9 Oropharyngeal dysphagia R13.12 History of malignant neoplasm of lung Z85.118 Subarachnoid hemorrhage I60.9 Hypothyroidism E03.9 Urinary tract infection N39.0
--- NOTE | 2020-12-17 12:15 | PC.NUTR ---
NUTR TF RECOMMENDATIONS: Pulmocare with continuous feeding goal of 35 ml/hr providing 1260 kcal (98%), 53 g PRO (95%), and 659 ml fluid (51%)(%NEEDS). Suggest starting TF at 15 ml/hr and increase by 10 ml Q6H s tolerated till goal rate is met. Suggest 80 ml H2O flushes Q4H to approach fluid needs or per physician. BOLUS: Pulmocare with daily goal of 4 cans over 3 feedings, 3/4 cup H2O flush after each feed.
[2020-12-17] MEDS: lanolin oint 7 gm 1 APPLIC TOPICAL (17:30)
[2020-12-17] MEDS: pred sod phos 15 mg/5 mL Soln 30mL Btl 5 MG PO (17:31)
[2020-12-18] VITALS (8 sets, daily range): BP systolic 113–136; BP diastolic 70–91; PULSE 75–127; RESP 16–18; TEMP 36.4–37.1; O2SAT 94–100
[2020-12-18] MEDS: levothyroxine 100 mcg Tablet PO (05:32)
[2020-12-18] MEDS: pred sod phos 15 mg/5 mL Soln 30mL Btl 5 MG PO (07:34)
[2020-12-18] MEDS: famotidine 20 mg/2 mL INJ IVP ×2 (08:04→20:39)
--- NOTE | 2020-12-18 08:53 | PM.PN ---
Subjective Subjective: Interval history: Patient further improved and was able to talk in small sentences. Denies shortness of breath or chest pain. Denies abdominal pain. Follows commands. Vitals/I&O/Wt Last Vital Signs Temp 98.5 F 12/18/20 07:38 Pulse 75 12/18/20 07:38 Resp 18 12/18/20 07:38 BP 113/75 12/18/20 07:38 Pulse Ox 100 12/18/20 07:38 12/17/20 12/18/20 12/18/20 22:59 06:59 14:59 Intake Total 100 / 150 200 / 350 100 / 100 Output Total 650 / 650 550 / 1200 Balance -550 / -500 -350 / -850 100 / 100 Weight last 48 hrs Weight 55.474 kg Weight 56.109 kg Physical Exam Narrative: EXAM NARRATIVE: Patient is not in distress and alert. Lungs with minimal coarse sounds throughout. Heart is regular no lower extremity edema. Abdomen is soft and nontender with positive bowel sounds. PEG tube functioning Urinary Catheter Management^: Smith: Cath Placed During This Visit: yes Reason for Continuing Indwelling Catheter: Required Immobilization for Trauma or Surgery or Anesthesia Urinary Catheter Date of Insertion: 12/14/20 Urinary Catheter Time of Insertion: 23:40 Data : 12/17/20 05:44 12/17/20 05:44 Micro: Microbiology 12/14/20 23:45 Urine Culture - Final Urine Catheterized Pseudomonas aeruginosa A&P Assessment and plan (1) Acute respiratory failure with hypoxia: Pneumonia ruled out. Status: Acute (2) Toxic metabolic encephalopathy: Most likely related to UTI. Status: Acute (3) COPD (chronic obstructive pulmonary disease): Not in exacerbation Status: Chronic (4) Oropharyngeal dysphagia: Post recent stroke, status post feeding tube placement Status: Acute (5) History of malignant neoplasm of lung: It appears that patient recently developed new spots concerning for primary or secondary malignancy Status: Chronic (6) Subarachnoid hemorrhage: Status post recent craniotomy prior to admission. Status: Acute (7) Hypothyroidism: Status: Acute (8) Urinary tract infection: Present on admission Status: Acute Additional A&P Information PLAN: Continue Primaxin and closely monitor for seizures. Continue Keppra Physical, speech and Occupational Therapy Patient will need to be placed to nursing facility for IV antibiotics. Attestations Medical Necessity Statement*: Patient with UTI and recent stroke requires close inpatient monitoring and treatment till discharge arrangements are made. Coding Level of Care Code Acute [employer] Aircrewman for [facility] Fwd Diagnoses Acute respiratory failure with hypoxia J96.01 Toxic metabolic encephalopathy G92 COPD (chronic obstructive pulmonary disease) J44.9 Oropharyngeal dysphagia R13.12 History of malignant neoplasm of lung Z85.118 Subarachnoid hemorrhage I60.9 Hypothyroidism E03.9 Urinary tract infection N39.0
--- NOTE | 2020-12-18 11:13 | XR_ITS ---
WS: [id number] CHEST XRAY TECHNIQUE: Portable chest. CLINICAL INFORMATION: picc line COMPARISON: December 14, 2020 FINDINGS: Right PICC line within the mid SVC. No pneumothorax. No other changes from previous. Heart: Normal cardiac silhouette. Aortic calcification. Lungs: Advanced chronic emphysematous changes. Subsegmental atelectasis in the midlungs. Bilateral ca lcified breast implants. ARTIFICIAL INTELLIGENCE SPECIALIST shunt tubing overlying the right hemithorax. Bones: Osteopenia. XR/XR chest 1V portable [id number] IMPRESSION: Right PICC line with tip in the mid SVC
--- NOTE | 2020-12-18 11:56 | PC.NURSE ---
RIGHT PICC ready for use. Primary nurse, Mary, notified.
[2020-12-19] VITALS (8 sets, daily range): BP systolic 108–123; BP diastolic 74–79; PULSE 80–114; RESP 16–20; TEMP 36.3–37.1; O2SAT 93–94
[2020-12-19] MEDS: levothyroxine 100 mcg Tablet PO (06:26)
[2020-12-19] MEDS: pred sod phos 15 mg/5 mL Soln 30mL Btl 5 MG PO (07:33)
[2020-12-19] MEDS: famotidine 20 mg/2 mL INJ IVP ×2 (07:45→22:42)
--- NOTE | 2020-12-19 09:12 | P.PN_ITS ---
Subjective Subjective: Interval history: Patient a little bit more lethargic this morning compared to yesterday but answers questions appropriately and follows commands.. She speaks in sentences but her speech is difficult to understand. Her mucosa is dry. She remains slightly tachycardic but otherwise saturates in the 90s on room air. Vitals/I&O/Wt Last Vital Signs Temp 98.8 F 12/19/20 08:00 Pulse 114 H 12/19/20 08:00 Resp 20 H 12/19/20 08:00 BP 123/78 12/19/20 08:00 Pulse Ox 93 12/19/20 08:00 12/18/20 12/19/20 12/19/20 22:59 06:59 14:59 Intake Total 200 / 400 100 / 500 100 / 100 Output Total 500 / 500 Balance 200 / 400 -400 / 0 100 / 100 Weight last 48 hrs Weight 56.382 kg Weight 55.474 kg Physical Exam Narrative: EXAM NARRATIVE: Patient is not in distress and alert. Lungs with minimal coarse sounds throughout. Heart is regular no lower extremity edema. Abdomen is soft and nontender with positive bowel sounds. PEG tube functioning Urinary Catheter Management^: Smith: Cath Placed During This Visit: yes Reason for Continuing Indwelling Catheter: Required Immobilization for Trauma or Surgery or Anesthesia Urinary Catheter Date of Insertion: 12/14/20 Urinary Catheter Time of Insertion: 23:40 Data : 12/17/20 05:44 12/17/20 05:44 A&P Assessment and plan (1) Acute respiratory failure with hypoxia: Pneumonia ruled out. Status: Acute (2) Toxic metabolic encephalopathy: Most likely related to UTI. Status: Acute (3) COPD (chronic obstructive pulmonary disease): Not in exacerbation Status: Chronic (4) Oropharyngeal dysphagia: Post recent stroke, status post feeding tube placement Status: Acute (5) History of malignant neoplasm of lung: It appears that patient recently developed new spots concerning for primary or secondary malignancy Status: Chronic (6) Subarachnoid hemorrhage: Status post recent craniotomy prior to admission. Status: Acute (7) Hypothyroidism: Status: Acute (8) Urinary tract infection: Present on admission Status: Acute Additional A&P Information PLAN: Continue Primaxin and Keppra and closely monitor for seizures. Will start patient on small dose metoprolol Continue physical, speech and Occupational Therapy Patient will need to be placed to nursing facility for IV antibiotics. Attestations Medical Necessity Statement*: Patient with UTI requiring IV antibiotic and risk for seizure requires close inpatient monitoring and treatment till placed to nursing facility. Coding Level of Care Code Acute Straight Line Press Setter for [facility] Fwd Diagnoses Acute respiratory failure with hypoxia J96.01 Toxic metabolic encephalopathy G92 COPD (chronic obstructive pulmonary disease) J44.9 Oropharyngeal dysphagia R13.12 History of malignant neoplasm of lung Z85.118 Subarachnoid hemorrhage I60.9 Hypothyroidism E03.9 Urinary tract infection N39.0
--- NOTE | 2020-12-19 10:27 | PC.OT ---
OT note: Attempted OT session, pt refused. Will attempt later as able.
--- NOTE | 2020-12-19 10:32 | DCPLANNER ---
Phoned and left a message on Daughter; Breanne phone regarding the IM - [phone]. Also left my phone number should she have any questions. Copy left at bedside.
[2020-12-19] MEDS: metoprolol tartrate 25 mg Tablet PO ×2 (12:19→21:16)
[2020-12-20] VITALS: BP 125/82; PULSE 98; RESP 20; TEMP 36.9; O2SAT 96
[2020-12-20 04:00] VITALS: BP 118/79; PULSE 103; RESP 20; TEMP 36.7; O2SAT 97
[2020-12-20 05:38] LABS: Basophils % 0.5 %; Eosinophils % 0.4 %; Hematocrit 36.2 % (37.0-47.0); Hemoglobin 11.7 g/dL (11.5-15.3); Lymphocytes # 0.5 10^3/uL (0.8-4.8); Lymphocytes % 6.3 %; Mean Corpuscular HGB Conc 32.3 g/dL (30.0-36.0); Mean Corpuscular Hemoglobin 31.1 pg (28.0-34.0); Mean Corpuscular Volume 96.3 fL (81-99); Mean Platelet Volume 9.8 fL (7.4-10.4); Monocytes # 0.5 10^3/uL (0.2-0.9); Monocytes % 6.3 %; Neutrophils # 6.17 10^3/uL (1.8-7.7); Nucleated Red Blood Cells % 0 %; Platelet Count 322 10^3/cmm (130-400); Red Blood Count 3.76 10^6/uL (4.1-5.3); Red Cell Distribution Width 14.9 % (12.1-15.1); White Blood Count 7.4 10^3/uL (4.0-10.0)
[2020-12-20 06:00] VITALS: PULSE 85
[2020-12-20 06:21] LABS: Albumin Level 2.9 g/dL (3.5-5.2); Alkaline Phosphatase 82 IU/L (35-105); Blood Urea Nitrogen 14 mg/dL (8-23); Calcium 9.2 mg/dL (8.5-10.5); Carbon Dioxide 28 mmol/L (22-29); Chloride 98 mmol/L (98-107); Globulin 3.2 g/dL (1.3-4.6); Glucose 132 mg/dL (65-115); Magnesium 2.2 mg/dL (1.7-2.3); Osmolality Calculated 280 mOsm/kg (285-295); Sodium 134 mmol/L (136-145); Total Bilirubin 0.4 mg/dL (0.15-1.2); Total Protein 6.1 g/dL (6.6-8.7)
[2020-12-20 06:23] LABS: Alanine Aminotransferase 54 U/L (0-33); Anion Gap 12.2 (5-19); Aspartate Amino Transferase 39 U/L (0-32); Potassium 4.2 mmol/L (3.5-5.1)
[2020-12-20] MEDS: levothyroxine 100 mcg Tablet PO (06:34)
[2020-12-20] MEDS: pred sod phos 15 mg/5 mL Soln 30mL Btl 5 MG PO (07:42)
[2020-12-20] MEDS: metoprolol tartrate 25 mg Tablet PO (07:42)
[2020-12-20 07:56] VITALS: BP 119/81; PULSE 106; RESP 94; TEMP 36.7; O2SAT 94
[2020-12-20] MEDS: famotidine 20 mg/2 mL INJ IVP (08:59)
--- NOTE | 2020-12-20 10:59 | PM.DCS ---
Discharge Providers Date of Admission: 12/14/20 17:56 Date of Discharge: December 20, 2020 Attending Provider at Admission: Nitin Mendieta MD Attending Provider at Discharge: Nitin Mendieta MD Primary Care Provider: CHRISTA Pena Diagnoses at Discharge Discharge Diagnosis (1) Acute respiratory failure with hypoxia: Status: Acute Permanent problem details: Resolved (2) Toxic metabolic encephalopathy: Status: Acute Permanent problem details: Resolved (3) COPD (chronic obstructive pulmonary disease): Status: Chronic (4) Oropharyngeal dysphagia: Status: Acute (5) History of malignant neoplasm of lung: Status: Chronic Permanent problem details: 2018 chemo and radiation (6) Subarachnoid hemorrhage: Status: Acute (7) Hypothyroidism: Status: Acute (8) Urinary tract infection: Status: Acute Permanent problem details: With Pseudomonas aeruginosa Reason for Visit Reason for Visit: SEIZURE / AIRWAY ISSUES Hospital Course Hospital Course Patient post recent hospitalization where she had subarachnoid bleed presents with altered mental status and acute hypoxic respiratory failure. She was diagnosed with UTI secondary to Pseudomonas aeruginosa. She was started on antibiotics which was adjusted to Primaxin as blood cultures came back. Patient had Ativan as well as Keppra on board and medication induced sedation was suspected as part of patient's mental status change. Ativan was discontinued and Keppra was initially placed on hold. Patient's mental status much improved. Because Primaxin was started based on cultures and patient's previous history of Levaquin allergy I have reinitiated Keppra due to decreased seizure threshold with Primaxin and patient did okay but over the last 2 days I notice she is slightly more somnolent. She still answers questions appropriately and follows commands. Since seizure is unlikely the cause of patient's presentation I will go ahead and change Keppra to 250 mg twice daily. Overall patient is doing well and I think it is safe for patient to be discharged to long term facility to complete antibiotics and for physical/occupational therapy. Patient is tolerating tube feeds well. Her CBC and kidney function are stable. Outpatient follow-up with Dr. Sales, Dr. Estrella and PCP will be requested. This morning patient denied shortness of breath or chest pain. Denied any pain. I also would like to mention that patient presented with Smith catheter. This was changed and I will keep it in and request outpatient follow-up with Dr. Shaw. Physical Exam Narrative: EXAM NARRATIVE: Her lungs with minimal coarse breath sounds, upper airway transmitted sounds. Heart is regular. Abdomen is soft and nontender with positive bowel sounds. No lower extremity edema. Patient moves all of her extremities upon request. She talks less today but answers questions with yes or no appropriately. Urinary Catheter Management^: Smith: Cath Placed During This Visit: yes Reason for Continuing Indwelling Catheter: Other Urinary Catheter Date of Insertion: 12/14/20 Urinary Catheter Time of Insertion: 23:40 Discharge Data Data Completed and Pending: Completed Studies During Hospitalization Category Date Time Status CT chest abd pel wo con Routine Cat Scan 12/14/20 18:[address] head wo con* 7 0450 Urgent Cat Scan 12/14/20 17:52 Completed XR chest 1V vincent ble [id number] Stat Exams 12/14/20 16:27 Completed XR chest 1V vincent ble [id number] Stat Exams 12/18/20 11:13 Completed Pending at discharge Category Date Time Status Complete Blood Co unt w/Auto AM LABS Lab 12/21/20 04:00 Ordered Complete Blood Co unt w/Auto AM LABS Lab 12/22/20 04:00 Ordered Comprehensive Met abolic Panel AM LA BS Lab 12/21/20 04:00 Ordered Comprehensive Met abolic Panel AM LA BS Lab 12/22/20 04:00 Ordered Magnesium AM LABS Lab 12/21/20 04:00 Ordered Magnesium AM LABS Lab 12/22/20 04:00 Ordered Labs from last 24 hours 12/20/20 12/20/20 05:09 05:09 WBC 7.4 RBC 3.76 L Hgb 11.7 Hct 36.2 L MCV 96.3 MCH 31.1 MCHC 32.3 RDW 14.9 Plt Count 322 MPV 9.8 Neut % (Auto) 83.0 Lymph % (Auto) 6.3 [place] % (Auto) 6.3 Eos % (Auto) 0.4 Baso % (Auto) 0.5 Neut # (Auto) 6.17 Lymph # (Auto) 0.5 L [place] # (Auto) 0.5 Eos # (Auto) 0.0 Baso # (Auto) 0.0 Nucleated RBC % (a uto) 0 Nucleated RBCs # 0.0 Sodium 134 L Potassium 4.2 Chloride 98 Carbon Dioxide 28 Anion Gap 12.2 BUN 14 Creatinine 0.4 L GFR Calculation Not Reportable Glucose 132 H Calculated Osmolal ity 280 L Calcium 9.2 Magnesium 2.2 Total Bilirubin 0.4 AST 39 H ALT 54 H Alkaline Phosphata se 82 Total Protein 6.1 L Albumin 2.9 L Globulin 3.2 Vitals: Last Vital Signs Temp 98.1 F 12/20/20 07:56 Pulse 106 H 12/20/20 07:56 Resp 94 H 12/20/20 07:56 BP 119/81 12/20/20 07:56 Pulse Ox 94 12/20/20 07:56 Discharge Plan Discharge Patient Disposition: Xfer SNF Condition: Stable Prescriptions: New Keppra 250 mg tablet 250 mg PO Q12H Qty: 60 RF: 0 metoprolol tartrate 25 mg Tablet 25 mg PO BID@0900,2100 Qty: 60 RF: 0 imipenem-cilastatin 250 mg recon soln 1 ml IV Q6H Qty: 30 RF: 0 omeprazole 20 mg capsule,delayed release(DR/EC) 20 mg PO DAILY 28 Days Qty: 30 RF: 0 Continued levothyroxine 100 mcg tablet 100 mcg PO DAILY@06 RF: 0 prednisolone 5 mg/5 mL Solution 5 mg PO DAILY@08 RF: 0 potassium bicarb-citric acid 20 mEq Tablet, Effervescent 20 meq PO BID@08,20 RF: 0 Ventolin HFA 90 mcg/actuation HFA aerosol inhaler 2 puff INHALATION Q6H PRN (Reason: shortness of breath or wheezing) RF: 0 Discontinued levetiracetam 500 mg tablet 500 mg PO Q12H Qty: 60 RF: 1 lorazepam 1 mg tablet 1 mg PO TID PRN (Reason: Anxiety) RF: 0 Discharge Orders: Discharge Order (Routine); Ordered 12/20/20 Ordered By: Nitin Mendieta Referrals: Krysta Sales MD [Physician] - 02/25/21 11:30 am Gumaro Alexandra FNP-C [Primary Care Provider] - 12/27/20 11:00 am John Shaw MD [Physician] - 1 week Denny Estrella MD [Hospitalist] - 4-7 days ([facility] willl call you and schedule an appointment to see Dr. Estrella.) Discharge Diet: Advance as tolerated Discharge Activity: Increase activity as tolerated Patient Instructions: Metoprolol (By mouth), Omeprazole (By mouth), Imipenem/Cilastatin (Injection), Levetiracetam (By mouth), Urinary Tract Infection in Women (DC), Aspiration Pneumonia (DC) Activity Restrictions/Additional Instructions: Please call your doctor or present to emergency department if your condition worsens or you develop diarrhea, lightheadedness, fatigue or see blood in your stool or black stool. Patient to continue with physical and Occupational Therapy. Patient to be monitored for seizures especially while taking Primaxin 2050 mg every 6 hours for the next 1 week. Discharge Attestations Time Spent in Discharge Care*: greater than 30 min Quality Metrics Clinical Quality Measures During this hospital stay, did patient experience: None
[2020-12-20 12:00] VITALS: BP 112/75; PULSE 114; RESP 17; TEMP 36.6; O2SAT 95
[2020-12-20] MEDS: bisacodyl 10 mg Supp PR (13:23)
[2020-12-20 15:05] VITALS: BP 112/75; PULSE 114; RESP 17; TEMP 36.6; O2SAT 95
== END 2020-12-20 15:06 | disposition skilled nursing facility (03) | DRG 689 ==
LOC: ER 16:13 → ICU 18:14 → MEDSURG 12-16 11:40
PROVIDERS: Admitting Provider Internal Medicine; Emergency Provider Family Medicine; PCP Nurse Practitioner; Visit Provider Internal Medicine
DX: N39.0 Urinary tract infection, site not specified (principal); J96.01 Acute respiratory failure with hypoxia; G92 Toxic encephalopathy; Z66 Do not resuscitate; Z85.118 Personal history of other malignant neoplasm of bronchus and lung; Z92.25 Personal history of immunosuppression therapy; E03.9 Hypothyroidism, unspecified; J44.9 Chronic obstructive pulmonary disease, unspecified; Z92.3 Personal history of irradiation; E78.2 Mixed hyperlipidemia; G62.9 Polyneuropathy, unspecified; Z87.891 Personal history of nicotine dependence; R13.10 Dysphagia, unspecified; Z93.1 Gastrostomy status; I69.091 Dysphagia following nontraumatic subarachnoid hemorrhage; Z79.51 Long term (current) use of inhaled steroids; Z96.0 Presence of urogenital implants; Z88.3 Allergy status to other anti-infective agents
CPT/HCPCS: 36415; 36569; 36592; 36600; 51702; 70450; 71045; 71250; 74176; 80053; 81001; 82140; 82803; 83605; 83735; 85025; 85610; 86140; 87040; 87077; 87086; 87186; 92507; 92523; 92526; 92610; 93005; 94640; 94660; 96365; 96367; 97110; 97163; 97166; 97530; 97535; 99291; J0696; J0743; J2543; J3370; J3490; J7030; J7040; J7050; J7510